=== PATIENT | female | born 1960 | race Caucasian/White ===

== ENCOUNTER 2016-09-09 12:10 | Inpatient (IN) | payer OTHER ==
[2016-09-09] VITALS (7 sets, daily range): BP systolic 142–232; BP diastolic 58–124
[~2016-09-09] VITALS: Ht 157.5 cm; Wt 108.9 kg
[~2016-09-09 12:10] MED LIST: /AMLO25TA PO; /INSUNPH SC; /INSUREG SC; /METO25TAB GT; ACET50TA PO; AGGR1CAP PO; ALBU17IN INH; ALEV220T26 PO; AMLO10TA2 PO; AMMO12CR4 EXT; AMMO12LO TOP; AMMONIUM LACTATE TOP; ARIM1TAB4 PO; ASPI325T5 PO; ASPI81TA60 PO; ASPI81TAEC PO; BACT800T5 PO; BENZ100C5 PO; CARB20TAXR PO; CARV25TA PO; CLOP75TA2 PO; COLA100C5 PO; DULC5TAB PO; EFFI10TA4 PO; EPIP0.3I2 INJ; FLON1SPR; FURO40TA2 PO; FURO80TA2 PO; HUMUINJ SC; HYDR10EL PO; INSUDET SC; INSUNSD SC; INSUPOW XX; INSUR SC; INSURSD SC; INSURSDRX SC; IPRASOL4 INH; KEPP1TAB PO; LISI40TAB FT; LISI40TAB PO; METO12TA PO; MICR10CA PO; MILKSUS PO; MONT10TA2 PO; PERCOCET PO; POTA75TA PO; PROAAER10 IN; QVAR1AER2 INH; RANI150T PO; SENO8.6T5 PO; SENO8.6T9 PO; SIMV20TA2 PO; SPIR25TA2 PO; SYMB80AE IN; TEGR100T3 PO; TIZA4CAP3 PO; TOPR200T PO; TRIA0.1C60 EXT; TYLE325T5 PO; TYLE650T25 PO; VITA100066 PO; ZEST20TA8 PO; ZOCO40TA PO; ZOFR8TAB PO; zocor PO
[2016-09-09] MEDS ORDERED: DEXTROSE 50% 50 ML SYRINGE IV PRN (14:00)
[2016-09-09] MEDS ORDERED: GLUCOSE 4 GM CHEW TABLET PO PRN (14:00)
[2016-09-09] MEDS ORDERED: GLUCAGON FOR INJ 1 MG VIAL (J1610) SC PRN (14:00)
[2016-09-09] MEDS ORDERED: FLOM5CAP PO (15:13)
[2016-09-09] MEDS ORDERED: KEPP1TAB2 PO (15:13)
[2016-09-09] MEDS ORDERED: POTA10CA PO (15:13)
[2016-09-09] MEDS ORDERED: CARB300C7 PO (15:13)
[2016-09-09] MEDS ORDERED: RANI150T PO (15:13)
[2016-09-09] MEDS ORDERED: LISI10TA4 PO (15:13)
[2016-09-09] MEDS ORDERED: HYDR10TAB PO (15:13)
[2016-09-09] MEDS ORDERED: SENN8.6T17 PO (15:13)
[2016-09-09] MEDS ORDERED: ASPI1TAB PO (15:13)
[2016-09-09] MEDS ORDERED: AMLO5TAB2 PO (15:13)
[2016-09-09] MEDS ORDERED: VITA-121 PO (15:13)
[2016-09-09] MEDS ORDERED: ZOCO80TA PO (15:13)
[2016-09-09] MEDS ORDERED: TORS10TA3 PO (15:15)
[2016-09-09] MEDS ORDERED: HEPA50VL SC (15:15)
[2016-09-09] MEDS ORDERED: CARV25TA PO (15:15)
[2016-09-09] MEDS ORDERED: MILKSUS PO (15:24)
[2016-09-09] MEDS ORDERED: BISA10SU4 PR (15:24)
[2016-09-09] MEDS ORDERED: APIDINJ SC (15:24)
[2016-09-09] MEDS ORDERED: ACET1TAB17 PO (15:24)
[2016-09-09] MEDS ORDERED: TOUJ1.2I SC (15:24)
[2016-09-09] MEDS ORDERED: METO10VL IV (15:31)
[2016-09-09] MEDS ORDERED: OXYC-517 PO (15:31)
[2016-09-09] MEDS ORDERED: hydrALAZINE INJ 20 MG/ML VIAL IV ONE (16:00)
[2016-09-09] MEDS ORDERED: amLODIPine 5 MG TAB PO ONE (16:30)
[2016-09-09] MEDS ORDERED: CARVedilol 6.25 MG TAB PO ONE (16:30)
--- NOTE | 2016-09-09 16:53 | PMRNOTEPD ---
PMR Note 56-year-old white female except that for a trial of neuro rehabilitation from [facility] in [place] found to have malignant hypertension upon arrival of 234/95 with a pulse of 80. Patient reporting having been on IV labetalol up until time of discharge itch or not in the records we have received. I have dictated and H&P and the job number is [id number]. ZAIN CROWDER MD Sep 09, 2016 16:53
[2016-09-09] MEDS ORDERED: **hydrALAZINE** 10 MG TAB PO ONE (17:00)
[2016-09-09] MEDS: ASPIRIN 81 MG ENTERIC TAB PO SCH (18:22)
[2016-09-09] MEDS: HumaLOG INSULIN (NovoLOG) PER UNIT SC SCH ×2 (18:23→20:15)
--- NOTE | 2016-09-09 18:57 | IPNPDOC ---
Text Note Date of Service The patient was seen on 09/09/16. NOTE Subjective: I was called by Dr. Balderas to evaluate a patient for hypertension upon arrival from other facility. Patient is a 56 year old female with extensive past medical history. She recently had a neurosurgical procedure performed and was transferred to [facility] for rehabilitation. Upon arrival her blood pressure was noted to be 232/95 with HR of 77. Patient was seen and examined at the bedside. She denied having any shortness of breath, chest pain, visual changes, headache, abdominal pain, nausea, or vomiting. She denied any urinary problems or sensory deficits. Objective: Vitals (See below) General: Lying in bed, no acute distress, comfortable, AAOx3 HEENT: Left scalp dressing in place (s/p recent neurosurgical intervention) CVS: RRR, +S1S2 Lungs: Fair air entry b/l, -w/r/r Abdomen: Soft, ND, NT, +BSx4 Extremities: 1+ pitting edema bilaterally, - Calf tenderness Assessment and plan: 1. Hypertension - - Patient has noted that her blood pressure has been running in the >190s range for the last 2-3 days at other facility - Currently her SBP was >220s - We have given her AM medications at this time at an adjusted dose - s/p Hydralazine 30mg PO, Carvedilol 6.25mg PO and Amlodipine 5mg PO - Her repeat BP check at 6PM was 162/76, with a HR of 76 - Her home medications were as follows: Amlodipine 5mg PO QD, Carvedilol 37.5 mg PO BID, Hydralazine 10 mg PO BID, Lisinopril 10 mg PO QD - Her medications have been adjusted: Amlodipine 10mg PO QD, Carvedilol 50mg PO BID, Hydralazine 20 mg PO TID, Lisinopril 10mg PO QD - Holding parameters have been added Full consultation will be completed by Family Medicine tomorrow AM I will discuss the case with Family [facility] [place] [facility], [facility] [facility], I+[facility] Vital Signs Date Time Temp Pulse Resp B/P (MAP) Pulse Ox O2 Delivery O2 Flow Rate FiO2 09/09/16 18:25 97.9 79 18 162/76 (104) 96 Room Air CIPRIANO DELGADO MD Sep 09, 2016 18:57
[2016-09-09] MEDS: carBAMazepine XR 100 MG TAB PO SCH (20:15)
[2016-09-09] MEDS: levETIRAcetam 250MG TABLET (KEPPRA) PO SCH (20:16)
[2016-09-09] MEDS: SIMVASTATIN 40 MG TAB PO SCH (20:16)
[2016-09-09] MEDS: CARVedilol 12.5 MG TAB PO SCH (20:16)
[2016-09-09] MEDS: FAMOTIDINE 20 MG TAB PO SCH (20:17)
[2016-09-09] MEDS: ACETAMINOPHEN TAB 650MG DOSE (2X325MG) PO PRN (20:17)
[2016-09-09] MEDS: LEVEMIR (INSULIN DETEMIR) 1 UNITS/0.01ML SC SCH (20:17)
[2016-09-09] MEDS: **hydrALAZINE** 10 MG TAB PO SCH (20:17)
[2016-09-09] MEDS ORDERED: CARVedilol 12.5 MG TAB PO SCH (21:00)
[2016-09-09] MEDS ORDERED: **hydrALAZINE** 10 MG TAB PO SCH (21:00)
[2016-09-10] VITALS (9 sets, daily range): BP systolic 162–188; BP diastolic 64–86
[2016-09-10 06:28] LABS: BASO # 0.1 K/mm3 (0.0-0.2); BASO % 0.8 % (0.0-1.0); EOS # 0.5 K/mm3 (0.0-0.50); EOS % 5.4 % (0.0-3.0); LARGE UNSTAINED CELL # 0.1 K/mm3 (0.0-0.4); LARGE UNSTAINED CELL % 1.3 % (0.0-4.0); LYMPH # 2.1 K/mm3 (1.5-4.5); LYMPH % 22.7 % (24.0-44.0); MEAN CORPUSCULAR HEMOGLOBIN 29.7 pg (27.0-33.0); MEAN CORPUSCULAR HGB CONC 33.7 g/dl (32.0-36.5); MEAN CORPUSCULAR VOLUME 88.1 fl (80.0-96.0); MONO # 0.3 K/mm3 (0.0-0.8); MONO % 3.7 % (0.0-5.0); NEUTROPHILS # 5.7 K/mm3 (1.8-7.7); PLATELET COUNT, AUTOMATED 467 k/mm3 (150-450); RED CELL DISTRIBUTION WIDTH 13.6 % (11.5-14.5); WHITE BLOOD COUNT 8.6 K/mm3 (4.0-10.0)
[2016-09-10 06:56] LABS: ALBUMIN 2.5 GM/DL (3.2-5.2); ALBUMIN/GLOBULIN RATIO 0.58 (1.00-1.93); BILIRUBIN,TOTAL 0.2 MG/DL (0.2-1.0); CREATININE FOR GFR 1.02 MG/DL (0.55-1.02); GLOMERULAR FILTRATION RATE 59.5 (>51); POTASSIUM SERUM 3.9 MEQ/L (3.5-5.1); TOTAL PROTEIN 6.8 GM/DL (6.4-8.2)
[2016-09-10] MEDS ORDERED: LISINOPRIL 10 MG TAB PO SCH (09:00)
[2016-09-10] MEDS ORDERED: amLODIPine 5 MG TAB PO SCH (09:00)
[2016-09-10] MEDS: HumaLOG INSULIN (NovoLOG) PER UNIT SC SCH ×4 (09:31→21:00)
[2016-09-10] MEDS: FAMOTIDINE 20 MG TAB PO SCH ×2 (09:32→21:35)
[2016-09-10] MEDS: **hydrALAZINE** 10 MG TAB PO SCH ×3 (09:32→21:34)
[2016-09-10] MEDS: TAMSULOSIN 0.4 MG CAP PO SCH (09:32)
[2016-09-10] MEDS: carBAMazepine XR 100 MG TAB PO SCH ×2 (09:32→21:35)
[2016-09-10] MEDS: POTASSIUM CHLORIDE 10 MEQ SR TABLET PO SCH (09:33)
[2016-09-10] MEDS: TORSEMIDE 10 MG TABLET PO SCH (09:33)
[2016-09-10] MEDS: CARVedilol 12.5 MG TAB PO SCH ×2 (09:34→21:35)
[2016-09-10] MEDS: levETIRAcetam 250MG TABLET (KEPPRA) PO SCH ×2 (09:34→21:34)
[2016-09-10] MEDS: amLODIPine 10 MG TAB PO SCH (09:34)
[2016-09-10] MEDS: LEVEMIR (INSULIN DETEMIR) 1 UNITS/0.01ML SC SCH (09:35)
--- NOTE | 2016-09-10 10:12 | PMRHPE ---
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 The patient was accepted from [facility] for a trial of neurorehabilitation due to reported deficits in mobility, activities of daily living, endurance and some recent dysarthria with transient left hemiparesis. However, on admission the patient in hypertensive crisis with blood pressure of 232/95 and a pulse of 80. She also reports that she had been on IV labetalol until prepared for transport by family vehicle to [facility] acute rehab unit and had change of her antihypertensives. In spite of requests for more records, the most recent records we have were therapy notes from the September 07 and intake and output from the September 08. Patient also notes that part of her stress is that she was told she was independent enough to go straight home by the therapist and then was told she had to come here before she could go home. The patient has had discussions with me about the nature of our rehab unit in that it is a voluntary program and that our discharge goals are based on the skills patient needs to be relatively safe at home. At this time however, our main concerns are hypertension and Dr. Jimenes from the medicine consult service is seeing the patient and adjusting her medications to try and regain control, though we may require transfer to PCU for management of this hypertensive crisis. 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 She is status post CVA times two and had been on the rehab unit previously for treatment of one of those CVAs. SECONDARY DIAGNOSES: Type 2 diabetes mellitus with chronic kidney disease stage 3 and acute kidney disease on top of it going into the surgery. Morbid obesity with obstructive sleep apnea. Atherosclerotic cardiovascular disease with coronary artery disease. Hypertension. Hyperlipidemia. Status post several stents in the heart plus the CVAs noted above and some apparent transient ischemic attacks (TIA) in the past. Asthma. Seizures related to prior cerebrovascular accidents. PAST SURGICAL HISTORY: Carotid stents. Appendectomy. Left breast cancer lumpectomy. FAMILY HISTORY: Includes atherosclerotic cardiovascular disease in the patient' s mother. SOCIAL HISTORY: Patient does not use alcohol, tobacco or illicit drugs and is FULL CODE and lives in wheelchair accessible house in [place], [place] on a barber. MEDICATIONS: The patient was sent on are: - insulin glargine 35 units twice a day - hydralazine 10 mg twice a day - Coreg 37.5 mg twice a day - K-Dur 10 mEq twice a day - Zantac 150 mg daily - simvastatin 80 mg at bedtime - torsemide 10 mg every morning - Tylenol 650 mg every 6 hours as needed - amlodipine 5 mg daily - aspirin 81 delayed release, enteric coated - carbamazepine 300 mg extended release twice a day - Keppra 750 mg twice a day - lisinopril 10 mg daily - Flomax 0.4 mg extended release daily The patient notes having been on IV labetalol until time of discharge and having blood pressures for systolic in the 190s range for the last two days, which are not part of the records with the patient. In fact, reported blood pressure 142/80 with a pulse of 80 and temperature of 37.1 for discharge. ALLERGIES: Includes: AMINOGLYCOSIDE. ATORVASTATIN. BACITRACIN. Bee venom. CEPHALOSPORINS. CIPROFLOXACIN. CONTRAST MEDIA. EZETIMIBE. NEOMYCIN. PENICILLINS. PRAVASTATIN. QUINOLONES. Seafoods. However, patient has been able to tolerate simvastatin. REVIEW OF SYSTEMS: Currently patient just noting frustration at not being able to go home and feeling anxious about that, but not reporting any pain, headaches , HEENT symptoms, cardiac symptoms, pulmonary symptoms, abdominal symptoms, genitourinary () symptoms, mild muscle aches, otherwise negative musculoskeletal, negative neurologic except for off and on mild headaches, which have been going on for a while with occasional severe headaches, but not currently. PHYSICAL EXAMINATION: Patient is a short, 5 feet 2 inches, 103 kg, middle aged white female who is alert and well oriented, a little bit anxious but after talking with her about the unit, less stress and pleasant and cooperative. Memory appears to be intact. VITAL SIGNS: Blood pressure 234/95 with a pulse of 80, blood pressure which has come down to 215/124 when rechecked on the machine as opposed to the initial arm check with manual auscultation. Oxygen saturation is greater than 90 on room air and respirations are approximately 18, but full vitals have not been acquired by nursing and charted yet. HEENT: Patient with craniotomy incision in the left temporal region with dressing that is clean without any drainage. No signs of inflammation, edema or ecchymosis in the area with the head shaved on the left side. No palpable tenderness including the area around the craniotomy site, which was not tested. No lymph nodes were found around the ears. NECK: Supple with no tender point. No carotid bruits and normal size thyroid, which is a little bit firm to touch, but no nodules present. LUNGS: Clear in all perla to auscultation without wheezes, rhonchi or rales and good air movement. CARDIAC: Shows regular rate and rhythm with normal S1 and S2. 3-4/4 radial pulses that are pounding. Good perfusion into the extremities. ABDOMEN: Morbidly obese with no palpable tenderness. Normal bowel sounds are present in all quadrants. EXTREMITIES: With functional range of motion for bilateral upper and lower extremities. NEUROLOGIC: Patient is alert and oriented times four, only error being reporting 09/08 as opposed to 09/09/2016. Memory appears to be intact. Speech is clear, coherent, and appropriate. Affect is a little anxious but pleasant, cooperative. Motor is intact grossly in bilateral upper and lower extremities. Light touch and vibration are intact in bilateral upper and lower extremities. Balance was not tested. Deep tendon reflexes show 1/4 knee jerks/ankle jerks, 2/4 biceps/ brachial radialis bilaterally and 1/4 triceps bilaterally. ASSESSMENT/PLAN: 1. Malignant hypertension: This will be either stabilized or patient will be transferred to the acute medicine service. 2. Plan for rehabilitation of nontraumatic brain injury secondary to Moyamoya disease and revascularization with the vascular graft and craniotomy: I will go ahead and have physical, occupational and speech therapy assess the patient, pending resolution of the malignant hypertension. The patient feels she is independent and able to do these skills and activities to return home, but agrees to evaluation and testing. This is in contrast to the most recent notes which are two days old by physical and occupational therapy at [facility] in [place]. Pending on the patient's results , may discharge if she is modified independent to independent versus proceeding with a trial of neurorehabilitation, will proceed and an estimated length of stay will be figured at that time. 3. Craniotomy care. At this time, will continue with dressing. No other changes. 4. Respiratory. Will go ahead and have the patient use CPAP, her own, and will assess for oxygen needs during therapy as well as night. 5. Atherosclerotic cardiovascular disease with hypertension, hyperlipidemia, coronary artery disease status post stents. We will watch and monitor these, but first the malignant hypertension needs to be treated. Will continue the patient's simvastatin for the lipids and will watch her for any angina. 6. Seizures related to brain injury. Will continue carbamazepine and Keppra and observe for any seizure type activity. POST ADMISSION PHYSICIAN EVALUATION: Patient is not consistent with the status portrayed to our team, especially with regards to hypertension and its management and it appears the patient was discharged with potentially a malignant hypertension to travel here without supervision. Also, the patient versus therapy records reports different levels of function and we will ascertain that by doing our own evaluations here. Depending on those evaluations, the patient may be a candidate for acute intensive rehab. I do think she would tolerate it if needed, however if note needed will go ahead and discharge her to the community. Her prognosis is uncertain as additional evaluation and records will be needed. Estimated length of stay is also uncertain for the reasons described above. Time spent in chart review, history and physical, and documentation is greater than 70 minutes. JANETD
[2016-09-10] MEDS ORDERED: LISINOPRIL 10 MG TAB PO ONE (12:00)
--- NOTE | 2016-09-10 12:03 | HPEPDOC ---
Medical History and Physical Date of Admission Sep 09, 2016 at 14:35 History and Physical REASON FOR CONSULTATION: Medical Management DATE OF VISIT: 09/10/16 ATTENDING: Dr. Jeffrey Siddiqui PCP: Dr Batres HPI: 56year oldF S/P EMS left indirect bypass procedure 08/31/[address] Andrey SUTTON 09/09/16. No acute medical complaints today. Denies any fevers, chills, weakness, fatigue, Headache, Chest Pain, Shortness of breath, cough, palpitations, abdominal pain, N/V/D or changes in bowel or bladder habits. PMHx: IDDM [place] Retinopathy CAD/stent 2001. [place] Hypertension Dyslipidemia Asthma CKD3. Rosi Asthma Chronic venous insufficiency Degenerative disc disease C5-6 Hypertensive heart disease History of CVA Post-CVA seizure Migraine headache. Follows with [facility] CARLOS/CPAP Moyamoya disease PSHX: Tonsillectomy Adenoidectomy Appendectomy Cholecystectomy Left breast biopsy. Ductal hyperplasia Cardiac stents Bilateral tubal ligation Craniotomy for indirect bypass procedure/EMS 01/07 Craniotomy for indirect bypass procedure/EMS08/31/16 SOCHX: Resides in: [facility] Marital Status: Tobacco use: Denies ETOH: Denies Illicit Drugs: Denies FAMHX: Mother: Alive, hypertension, diabetes Father: , lung cancer Siblings: Alive, history of diabetes Unexpected deaths due to medical reasons: None. ROS: As noted in HPI, otherwise 11pt ROS of systems reviewed and unremarkable. Patient is requesting to use her own Toujeo she states Levemir is not effective for her. PE: GEN: 56yoF, appears stated age. Well-nourished, well developed. No acute distress. Alert and oriented x 3. Pleasant, interactive. HEENT: Normocephalic, healing craniotomy incision noted left. Pupils are equal, round, and reactive to light. Extraocular movements are intact. No nystagmus appreciated. Sclera are nonicteric. Conjunctiva without injection. Nose midline. Nasal turbinates without bogginess. EACs both patent BL. TMs both visualized and carpenter with good cone of light, no bulging or erythema. No facial asymmetry. Moist mucous membranes. Dentition fair. Pharynx pink and moist, no cobblestoning. Neck supple, trachea midline. No lymphadenopathy or thyromegaly appreciated. CHEST: Regular rate and rhythm, +S1, +S2 LUNGS: Clear to auscultation bilaterally. No wheezes, rales, or rhonchi. Breathing appears symmetric and easy. Patient is speaking in full sentences. No accessory muscle use. ABD: Round, soft, non-tender, non-distended. +Bowel sounds throughout. No rebound or guarding. No costovertebral angle tenderness. EXT: Pulses 2+ bilaterally dorsalis pedis and radial. Trace lower extremity edema appreciated. SKIN: Bath, dry, warm. Capillary refill <2sec. No rashes. NEURO: Alert and oriented x 3. Cranial nerves III-XII are intact. No focal deficits appreciated. A&P: 56year oldF S/P EMS left indirect bypass procedure 08/31/[address] Balderas ARU 09/09/16 1. Status post EMS/ left indirect bypass procedure 08/31/16. Management as per ARU/Dr Balderas. Follow-up with neurosurgery following discharge. Pain control as per attending. Bowel care as per attending. PT/OT/ST as per attending. DVT prophylaxis. As per attending. 2. IDDM. CC diet. SSI. Pt requests to use Toujeo from home, Cont 40 units BID as per Carole. F/U with Carole as outpt. 3. HTN. Continue Demadex 10 mg daily, potassium supplement 20 mEq daily, Norvasc 10 mg daily, hydralazine 20 mg 3 times a day, Coreg 50 mg twice a day. Blood pressure is noted to be in the 170s to 180s systolic. Will increase lisinopril to 10 mg twice a day. Monitor. 4. HLD. Continue Zocor 80 mg daily. 5. H/O seizure. Continue Tegretol-XR 300 mg by mouth twice a day, Keppra 750mg BID. Outpt F/U with [facility]. 6. CARLOS/CPAP. CPAP from home. 7. GERD. Continue Pepcid 20 mg by mouth twice a day. 8. CAD/stent. Continue Coreg 50 mg by mouth twice a day. Continue statin. Continue aspirin 81 mg daily. 9. CKD3. Follows with Rosi. Monitor. Thank you for your consultation. We will continue to follow along with you. Vital Signs Vital Signs Date Time Temp Pulse Resp B/P (MAP) Pulse Ox O2 Delivery O2 Flow Rate FiO2 09/10/16 10:30 98.1 76 18 178/86 (116) 97 Room Air Laboratory Data Labs 24H Laboratory Tests 2 09/09/16 16:54: Urine Appearance HAZY, Urine Color YELLOW, Urine pH 6.0, Urine Specific Wallace 1.008, Urine Protein 2+H, Urine Glucose (UA) 1+H, Urine Ketones NEGATIVE, Urine Urobilinogen 0.2, Urine Bilirubin NEGATIVE, Urine Leukocyte Esterase 1+H, Urine Blood 1+H, Urine Nitrite NEGATIVE, Urine WBC (Auto) 9H, Urine RBC (Auto) 7H, Urine Hyaline Casts (Auto) 0, Urine Bacteria (Auto) 1+H, Urine Squamous Epithelial Cells 1, Urine Amorphous Sediment SMALLH, Urine Sperm (Auto) 09/09/16 17:07: Bedside Glucose (Misc Panel) 197H 09/09/16 20:02: Bedside Glucose (Misc Panel) 293H 09/10/16 06:06: White Blood Count 8.6, Red Blood Count 3.32L, Hemoglobin 9.9L, Hematocrit 29.2L , Mean Corpuscular Volume 88.1, Mean Corpuscular Hemoglobin 29.7, Mean Corpuscular Hemoglobin Concent 33.7, Red Cell Distribution Width 13.6, Platelet Count 467H, Neutrophils (%) (Auto) 66.0, Lymphocytes (%) (Auto) 22.7L, Monocytes (%) (Auto) 3.7, Eosinophils (%) (Auto) 5.4H, Basophils (%) (Auto) 0.8 , Neutrophils # (Auto) 5.7, Lymphocytes # (Auto) 2.1, Monocytes # (Auto) 0.3, Eosinophils # (Auto) 0.5, Basophils # (Auto) 0.1, Large Unclassified Cells % 1.3 , Large Unclassified Cells # 0.1, Anion Gap 5L, Glomerular Filtration Rate 59.5 , Blood Urea Nitrogen 11, Creatinine 1.02, Sodium Level 141, Potassium Level 3.9 , Chloride Level 107, Carbon Dioxide Level 29, Calcium Level 9.0, Aspartate Amino Transf (AST/SGOT) 24, Alanine Aminotransferase (ALT/SGPT) 46, Alkaline Phosphatase 155H, Total Bilirubin 0.2, Total Protein 6.8, Albumin 2.5L, Albumin/ Globulin Ratio 0.58L 09/10/16 11:26: Bedside Glucose (Misc Panel) 206H CBC/BMP Laboratory Tests 09/10/16 06:06 Red Blood Count 3.32 L, Mean Corpuscular Volume 88.1, Mean Corpuscular Hemoglobin 29.7, Mean Corpuscular Hemoglobin Concent 33.7, Red Cell Distribution Width 13.6, Neutrophils (%) (Auto) 66.0, Lymphocytes (%) (Auto) 22.7 L, Monocytes (%) (Auto) 3.7, Eosinophils (%) (Auto) 5.4 H, Basophils (%) ( Auto) 0.8, Neutrophils # (Auto) 5.7, Lymphocytes # (Auto) 2.1, Monocytes # (Auto ) 0.3, Eosinophils # (Auto) 0.5, Basophils # (Auto) 0.1, Calcium Level 9.0, Aspartate Amino Transf (AST/SGOT) 24, Alanine Aminotransferase (ALT/SGPT) 46, Alkaline Phosphatase 155 H, Total Bilirubin 0.2, Total Protein 6.8, Albumin 2.5 L Home Medications Scheduled (Edi Whelan) 300 Unit/Ml Inj, 35 UNIT SC BID HOME MED (Apidra) 100 Unit/Ml Inj, 1 DOSE SC ACHS PER SLIDING SCALE, GIVEN AT [facility], NOT HOME MED Amlodipine Besylate (Amlodipine Besylate) 5 Mg Tab, 5 MG PO DAILY Aspirin (Aspirin 81) 81 Mg Tab, 81 MG PO QPM Carbamazepine (Carbamazepine ER) 300 Mg Cap, 300 MG PO BID Carvedilol (Carvedilol) 25 Mg Tab, 37.5 MG PO BID Cholecalciferol (Vitamin D-3) 1,000 Unit Tab, 3,000 UNIT PO DAILY Heparin Sod (Porcine) (Heparin Sodium) 5,000 Unit/Ml Inj, 5,000 UNIT SC TID [facility] Hydralazine HCl (Hydralazine HCl) 10 Mg Tab, 10 MG PO BID Levetiracetam (Keppra) 750 Mg Tab, 750 MG PO BID Lisinopril (Lisinopril) 10 Mg Tab, 10 MG PO DAILY Potassium Chloride (Klor-Con M10) 10 Meq Tabcr, 10 MEQ PO BID Ranitidine HCl (Ranitidine HCl) 150 Mg Tab, 1 TAB PO QPM Senna (Senna Laxative) 8.6 Mg Tab, 2 TAB PO QHS Simvastatin - High Dose (Zocor) 80 Mg Tab, 80 MG PO QHS Tamsulosin Hydrochloride (Flomax) 0.4 Mg Cap, 0.4 MG PO DAILY Torsemide (Torsemide) 10 Mg Tab, 10 MG PO DAILY Scheduled PRN Acetaminophen (Acetaminophen) 325 Mg Tab, 650 MG PO Q4H PRN for PAIN Bisacodyl (Bisacodyl) 10 Mg Sup, 10 MG TX for CONSTIPATION Metoclopramide HCl (Metoclopramide HCl) 5 Mg/Ml Inj, 10 MG IV Q6H PRN for NAUSEA OR VOMITING Milk Of Magnesia (Milk of Magnesia) 1,200 Mg/15 Ml Erendira, 30 ML PO for CONSTIPATION Oxycodone HCl (Oxycodone HCl) 5 Mg Tab, 5 MG PO Q4H PRN for PAIN Allergies Coded Allergies: Cephalexin (Unverified Allergy, Intermediate, HIVES, 12/27/13) Ciprofloxacin (Unverified Allergy, Intermediate, HIVES, 12/27/13) Aminoglycosides (Verified Allergy, Mild, HIVES, 05/30/12) Bacitracin (Verified Allergy, Mild, HIVES, 05/30/12) Cephalosporins (Verified Allergy, Mild, HIVES, DYSPENA, 05/30/12) Neomycin (Verified Allergy, Mild, HIVES, 05/30/12) Polymyxin B (Verified Allergy, Mild, HIVES, 05/30/12) Atorvastatin (Verified Allergy, Unknown, 09/09/16) Bee Venom (Verified Allergy, Unknown, 09/09/16) Contrast Media (Verified Allergy, Unknown, 02/12/03) Penicillins (Verified Allergy, Unknown, 05/30/12) Penicillins Cross Reactors (Verified Allergy, Unknown, 05/30/12) Pravastatin (Verified Allergy, Unknown, 09/09/16) Quinolones (Verified Allergy, Unknown, 05/30/12) SEAFOOD (Unverified Allergy, Unknown, N/V AND RASH, DIFF. BREATHING, 02/06) Ezetimibe (Verified Adverse Reaction, Severe, MUSCLE WEAKNESS, 05/30/12) Statins (Verified Adverse Reaction, Severe, MUSCLE ACHES, 05/30/12) CRESTOR, LIPITOR, PRAVACHOL Summer Franco PA Sep 10, 2016 12:03
--- NOTE | 2016-09-10 14:46 | IPNPDOC ---
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 Patient with some balance, sensorium, mild weakness and limitations in ADLs is admitted for a program of physical and occupational therapy with assessment by speech-language pathology. Patient who had perceived yourself as modified independent to independent is showing number areas where she is min assist to contact-guard assist or needing supervision and set up in terms of ADLs and mobility. He should be amenable to therapy. He issue remains hypertension which is improved but still significantly above target. Patient without a pain complaints notes feeling less stress today and expresses trust in members of her care team. ALLERGIES: See Below MEDICATIONS: Reviewed, see below. OBJECTIVE: VITAL SIGNS: Please see below. PHYSICAL EXAMINATION: GENERAL: Morbidly obese 56-year-old white female who is alert and oriented 4. Speech is clear coherent appropriate but slightly concrete. Affect is less anxious, but is overall pleasant and cooperative. HEENT: Left craniotomy site without signs of inflammation or drainage. No facial droop or dysarthria noted. CARDIOVASCULAR: Regular rate and rhythm with normal S1 and S2 without S3-S4 murmurs or rubs. 3 out 4 radial pulses. LUNGS: All perla clear to auscultation . ABDOMEN: Obese, nontender with normal bowel sounds in all quadrants. NEUROLOGICAL: Good to full strength in bilateral upper and lower extremities with a little decrease in balance. SKIN: Left scalp incision healing well. LABORATORY DATA: Reviewed. Please see below. MICROBIOLOGY: Please see below. IMAGING: No new imaging. DVT prophylaxis ordered?: MIKE hose and aspirin. ASSESSMENT AND PLAN: 1. 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 Patient was reviewed by team and rehabilitation rounds and there does appear to be about 5-6 days of therapy needed to reach goals for discharge to home. 2. Malignant hypertension: Systolic blood pressure still 178 this morning but then slid up to 182 and then back down to 178 for late morning and early afternoon. As is remained this I will continue every 4 hours checks. Medicine consult to continue to work on adjusting medications to try and reach bear systolic blood pressure control. 3. Anemia: H&H is 9.9 and 29.2 with some elevation of platelets of 467,000 which is probably stress related. We will continue to monitor this. 4. Liver function tests: AST and ALT are normal but alkaline phosphatase is mildly elevated at 155. We will continue to monitor this. 5. Hypoalbuminemia: Surgery has stressed the patient and current albumin level is 2.5 which will need watching. 6. Bladder: Mildly abnormal urinalysis with 2+ protein 9 white blood cells 1+ ( glucose, blood, leukoesterase and bacteria) is suggestive of possible UTI. I will get catheterized specimen to avoid Contamination for urine culture and sensitivity. At this time I will not start empiric antibiotics. TIME SPENT: Chart Review, examination and documentation required greater than 35 minutes. Allergies Coded Allergies: Cephalexin (Unverified Allergy, Intermediate, HIVES, 12/27/13) Ciprofloxacin (Unverified Allergy, Intermediate, HIVES, 12/27/13) Aminoglycosides (Verified Allergy, Mild, HIVES, 05/30/12) Bacitracin (Verified Allergy, Mild, HIVES, 05/30/12) Cephalosporins (Verified Allergy, Mild, HIVES, DYSPENA, 05/30/12) Neomycin (Verified Allergy, Mild, HIVES, 05/30/12) Polymyxin B (Verified Allergy, Mild, HIVES, 05/30/12) Atorvastatin (Verified Allergy, Unknown, 09/09/16) Bee Venom (Verified Allergy, Unknown, 09/09/16) Contrast Media (Verified Allergy, Unknown, 02/12/03) Penicillins (Verified Allergy, Unknown, 05/30/12) Penicillins Cross Reactors (Verified Allergy, Unknown, 05/30/12) Pravastatin (Verified Allergy, Unknown, 09/09/16) Quinolones (Verified Allergy, Unknown, 05/30/12) SEAFOOD (Unverified Allergy, Unknown, N/V AND RASH, DIFF. BREATHING, 02/06) Ezetimibe (Verified Adverse Reaction, Severe, MUSCLE WEAKNESS, 05/30/12) Statins (Verified Adverse Reaction, Severe, MUSCLE ACHES, 05/30/12) CRESTOR, LIPITOR, PRAVACHOL Vital Signs Vital Signs Date Time Temp Pulse Resp B/P (MAP) Pulse Ox O2 Delivery O2 Flow Rate FiO2 09/10/16 12:48 178/86 09/10/16 10:30 98.1 76 18 97 Room Air Laboratory Data CBC/BMP Laboratory Tests 09/10/16 06:06 Red Blood Count 3.32 L, Mean Corpuscular Volume 88.1, Mean Corpuscular Hemoglobin 29.7, Mean Corpuscular Hemoglobin Concent 33.7, Red Cell Distribution Width 13.6, Neutrophils (%) (Auto) 66.0, Lymphocytes (%) (Auto) 22.7 L, Monocytes (%) (Auto) 3.7, Eosinophils (%) (Auto) 5.4 H, Basophils (%) ( Auto) 0.8, Neutrophils # (Auto) 5.7, Lymphocytes # (Auto) 2.1, Monocytes # (Auto ) 0.3, Eosinophils # (Auto) 0.5, Basophils # (Auto) 0.1, Calcium Level 9.0, Aspartate Amino Transf (AST/SGOT) 24, Alanine Aminotransferase (ALT/SGPT) 46, Alkaline Phosphatase 155 H, Total Bilirubin 0.2, Total Protein 6.8, Albumin 2.5 L Labs 24H Laboratory Tests 2 09/09/16 16:54: Urine Appearance HAZY, Urine Color YELLOW, Urine pH 6.0, Urine Specific [place] 1.008, Urine Protein 2+H, Urine Glucose (UA) 1+H, Urine Ketones NEGATIVE, Urine Urobilinogen 0.2, Urine Bilirubin NEGATIVE, Urine Leukocyte Esterase 1+H, Urine Blood 1+H, Urine Nitrite NEGATIVE, Urine WBC (Auto) 9H, Urine RBC (Auto) 7H, Urine Hyaline Casts (Auto) 0, Urine Bacteria (Auto) 1+H, Urine Squamous Epithelial Cells 1, Urine Amorphous Sediment SMALLH, Urine Sperm (Auto) 09/09/16 17:07: Bedside Glucose (Misc Panel) 197H 09/09/16 20:02: Bedside Glucose (Misc Panel) 293H 09/10/16 06:04: Carbamazepine (Tegretol) Level 8.4 09/10/16 06:06: White Blood Count 8.6, Red Blood Count 3.32L, Hemoglobin 9.9L, Hematocrit 29.2L , Mean Corpuscular Volume 88.1, Mean Corpuscular Hemoglobin 29.7, Mean Corpuscular Hemoglobin Concent 33.7, Red Cell Distribution Width 13.6, Platelet Count 467H, Neutrophils (%) (Auto) 66.0, Lymphocytes (%) (Auto) 22.7L, Monocytes (%) (Auto) 3.7, Eosinophils (%) (Auto) 5.4H, Basophils (%) (Auto) 0.8 , Neutrophils # (Auto) 5.7, Lymphocytes # (Auto) 2.1, Monocytes # (Auto) 0.3, Eosinophils # (Auto) 0.5, Basophils # (Auto) 0.1, Large Unclassified Cells % 1.3 , Large Unclassified Cells # 0.1, Anion Gap 5L, Glomerular Filtration Rate 59.5 , Blood Urea Nitrogen 11, Creatinine 1.02, Sodium Level 141, Potassium Level 3.9 , Chloride Level 107, Carbon Dioxide Level 29, Calcium Level 9.0, Aspartate Amino Transf (AST/SGOT) 24, Alanine Aminotransferase (ALT/SGPT) 46, Alkaline Phosphatase 155H, Total Bilirubin 0.2, Total Protein 6.8, Albumin 2.5L, Albumin/ Globulin Ratio 0.58L 09/10/16 11:26: Bedside Glucose (Misc Panel) 206H Current Medications Current Medications Current Medications Acetaminophen (Tylenol Tab) 650 mg Q6HP PRN PO PAIN Last administered on 20:17; Start 09/09/16 at 14:00; Stop 10/09/16 at 13:59 Amlodipine Besylate (Norvasc) 5 mg DAILY PO ; Start 09/10/16 at 09:00; Stop at 09:00; Status DC Amlodipine Besylate (Norvasc) 10 mg DAILY PO Last administered on 09/10/16 09: 34; Start 09/10/16 at 09:00; Stop 10/10/16 at 08:59 Aspirin (Ecotrin) 81 mg QPM@1800 PO Last administered on 09/09/16 18:22; Start 09/09/16 at 18:00; Stop 10/09/16 at 17:59 Carbamazepine (TEGretol XR) 300 mg BID PO Last administered on 09/10/16 09:32 ; Start 09/09/16 at 21:00; Stop 10/09/16 at 20:59 Carvedilol (COReg) 37.5 mg BID PO ; Start 09/09/16 at 21:00; Stop 09/09/16 at 21 :00; Status DC Carvedilol (COReg) 50 mg BID PO Last administered on 09/10/16 09:34; Start at 21:00; Stop 10/09/16 at 20:59 Dextrose (Dextrose 50%) 25 ml ASDIRECTED PRN IV SEE LABEL COMMENTS; Start 09/09 at 14:00; Stop 10/09/16 at 13:59 Famotidine (Pepcid) 20 mg BID PO Last administered on 09/10/16 09:32; Start at 21:00; Stop 10/09/16 at 20:59 Glucagon (Glucagon) 1 mg ASDIRECTED PRN SC SEE LABEL COMMENTS; Start 09/09/16 at 14:00; Stop 10/09/16 at 13:59 Glucose (Glucose) 16 GM ASDIRECTED PRN PO SEE LABEL COMMENTS; Start 09/09/16 at 14:00; Stop 10/09/16 at 13:59 Home Med (Med Rec Complete!) ASDIRECTED XX ; Start 09/09/16 at 15:45; Stop at 15:49; Status DC Hydralazine HCl (Apresoline) 10 mg BID PO ; Start 09/09/16 at 21:00; Stop at 21:00; Status DC Hydralazine HCl (Apresoline) 20 mg TID PO Last administered on 09/10/16 09:32 ; Start 09/09/16 at 21:00; Stop 10/09/16 at 20:59 Insulin Detemir (Levemir Insulin) 35 units BID SC Last administered on 09:35; Start 09/09/16 at 21:00; Stop 09/10/16 at 11:50; Status DC Insulin Human Lispro (HumaLOG INSULIN) See Protocol Table AC SC Last administered on 09/10/16 12:49; Start 09/09/16 at 17:30; Stop 10/09/16 at 17:29 Insulin Human Lispro (HumaLOG INSULIN) See Protocol Table QHS SC Last administered on 09/09/16 20:15; Start 09/09/16 at 21:00; Stop 10/09/16 at 20:59 Levetiracetam (Keppra) 750 mg BID PO Last administered on 09/10/16 09:34; Start 09/09/16 at 21:00; Stop 10/09/16 at 20:59 Lisinopril (Prinivil) 10 mg BID PO ; Start 09/10/16 at 21:00; Stop 10/10/16 at 20:59 Lisinopril (Prinivil) 10 mg DAILY PO Last administered on 09/10/16 09:33; Start 09/10/16 at 09:00; Stop 09/10/16 at 11:50; Status DC Miscellaneous (Unresolved Patient Own Med Order) SEE LABEL COMMENTS UNRESOLVED XX ; Start 09/10/16 at 00:01; Stop 10/10/16 at 00:00 Patient Own Medication (Patient'S Own Med) 1 ea BID SQ ; Start 09/10/16 at 21:00 ; Stop 10/10/16 at 20:59; Status UNV Potassium Chloride (Micro-K Extencaps) 20 meq DAILY PO Last administered on 09:33; Start 09/10/16 at 09:00; Stop 10/10/16 at 08:59 Simvastatin (Zocor) 80 mg QHS PO Last administered on 09/09/16 20:16; Start at 21:00; Stop 10/09/16 at 20:59 Tamsulosin HCl (Flomax) 0.4 mg DAILY PO Last administered on 09/10/16 09:32; Start 09/10/16 at 09:00; Stop 10/10/16 at 08:59 Torsemide (Demadex) 10 mg DAILY PO Last administered on 09/10/16 09:33; Start 09/10/16 at 09:00; Stop 10/10/16 at 08:59 ZAIN CROWDER MD Sep 10, 2016 14:46
[2016-09-10] MEDS: ASPIRIN 81 MG ENTERIC TAB PO SCH (18:10)
[2016-09-10] MEDS: SIMVASTATIN 40 MG TAB PO SCH (21:34)
[2016-09-10] MEDS: LISINOPRIL 10 MG TAB PO SCH (21:35)
[2016-09-11] VITALS (8 sets, daily range): BP systolic 158–190; BP diastolic 64–90
[2016-09-11] MEDS ORDERED: NITROGLYCERIN 0.4 MG SUBL TABLET SL PRN (03:45)
[2016-09-11 06:58] LABS: MEAN CORPUSCULAR HEMOGLOBIN 30.4 pg (27.0-33.0); MEAN CORPUSCULAR HGB CONC 34.8 g/dl (32.0-36.5); MEAN CORPUSCULAR VOLUME 87.3 fl (80.0-96.0); RED CELL DISTRIBUTION WIDTH 13.6 % (11.5-14.5); WHITE BLOOD COUNT 7.6 K/mm3 (4.0-10.0)
[2016-09-11 07:09] LABS: ALBUMIN 2.3 GM/DL (3.2-5.2); ALBUMIN/GLOBULIN RATIO 0.59 (1.00-1.93); ALKALINE PHOSPHATASE 129 U/L (45-117); ALT/SGPT 36 U/L (12-78); ANION GAP 6 MEQ/L (8-16); AST/SGOT 20 U/L (15-37); BILIRUBIN,TOTAL 0.2 MG/DL (0.2-1.0); BLOOD UREA NITROGEN 11 MG/DL (7-18); CALCIUM LEVEL 8.5 MG/DL (8.5-10.1); CARBON DIOXIDE LEVEL 28 MEQ/L (21-32); CHLORIDE LEVEL 104 MEQ/L (98-107); CREATININE FOR GFR 0.95 MG/DL (0.55-1.02); GLOMERULAR FILTRATION RATE > 60.0 (>51); GLUCOSE, FASTING 128 MG/DL (70-105); POTASSIUM SERUM 3.6 MEQ/L (3.5-5.1); SODIUM LEVEL 138 MEQ/L (136-145); TOTAL PROTEIN 6.2 GM/DL (6.4-8.2)
[2016-09-11] MEDS: HumaLOG INSULIN (NovoLOG) PER UNIT SC SCH ×4 (08:15→20:54)
[2016-09-11] MEDS: LISINOPRIL 10 MG TAB PO SCH ×2 (08:16→20:53)
[2016-09-11] MEDS: TAMSULOSIN 0.4 MG CAP PO SCH (08:17)
[2016-09-11] MEDS: FAMOTIDINE 20 MG TAB PO SCH ×2 (08:17→20:52)
[2016-09-11] MEDS: levETIRAcetam 250MG TABLET (KEPPRA) PO SCH ×2 (08:17→20:53)
[2016-09-11] MEDS: TORSEMIDE 10 MG TABLET PO SCH (08:17)
[2016-09-11] MEDS: amLODIPine 10 MG TAB PO SCH (08:17)
[2016-09-11] MEDS: carBAMazepine XR 100 MG TAB PO SCH ×2 (08:18→20:53)
[2016-09-11] MEDS: CARVedilol 12.5 MG TAB PO SCH ×2 (08:18→20:52)
[2016-09-11] MEDS: **hydrALAZINE** 10 MG TAB PO SCH (08:18)
[2016-09-11] MEDS: POTASSIUM CHLORIDE 10 MEQ SR TABLET PO SCH (08:18)
[2016-09-11] MEDS ORDERED: NON-FORMULARY 1 EA EA SQ SCH (09:00)
[2016-09-11 10:15] LABS: PERCENT SATURATION 21.1 % (13.2-37.4)
--- NOTE | 2016-09-11 12:04 | IPNPDOC ---
Date Seen The patient was seen on 09/11/16. Progress Note HPI: 56year oldF S/P EMS left indirect bypass procedure 08/31/[address] Andrey SUTTON 09/09/16. Pt had episode of CP last PM. Pt states it was heavy sensation over chest. States she has had some anxiety regarding controlling her BP. Pt was given SL NTG x 1 with relief. Pt states she has not had any further CP symptoms. Has been OOB with therapy this AM. Denies any fevers, chills, weakness, fatigue, Headache, Chest Pain, Shortness of breath, cough, palpitations, abdominal pain, N/V/D or changes in bowel or bladder habits. PMHx: IDDM [facility] Syr Retinopathy CAD/stent 2001. [place] Hypertension Dyslipidemia Asthma CKD3. Rosi Asthma Chronic venous insufficiency Degenerative disc disease C5-6 Hypertensive heart disease History of CVA Post-CVA seizure Migraine headache. Follows with [facility] CARLOS/CPAP Moyamoya disease PSHX: Tonsillectomy Adenoidectomy Appendectomy Cholecystectomy Left breast biopsy. Ductal hyperplasia Cardiac stents Bilateral tubal ligation Craniotomy for indirect bypass procedure/EMS 01/07 Craniotomy for indirect bypass procedure/EMS08/31/16 PE: GEN: 56yoF, appears stated age. Well-nourished, well developed. No acute distress. Alert and oriented x 3. Pleasant, interactive. HEENT: Normocephalic, healing craniotomy incision noted left. Pupils are equal, round, and reactive to light. Extraocular movements are intact. No nystagmus appreciated. Sclera are nonicteric. Conjunctiva without injection. Nose midline. Nasal turbinates without bogginess. EACs both patent BL. TMs both visualized and carpenter with good cone of light, no bulging or erythema. No facial asymmetry. Moist mucous membranes. Dentition fair. Pharynx pink and moist, no cobblestoning. Neck supple, trachea midline. No lymphadenopathy or thyromegaly appreciated. CHEST: Regular rate and rhythm, +S1, +S2. JVD not visible sitting. LUNGS: Clear to auscultation bilaterally. No wheezes, rales, or rhonchi. Breathing appears symmetric and easy. Patient is speaking in full sentences. No accessory muscle use. ABD: Round, soft, non-tender, non-distended. +Bowel sounds throughout. No rebound or guarding. No costovertebral angle tenderness. EXT: Pulses 2+ bilaterally dorsalis pedis and radial. Trace lower extremity edema appreciated. SKIN: [place], dry, warm. Capillary refill <2sec. No rashes. NEURO: Alert and oriented x 3. Cranial nerves III-XII are intact. No focal deficits appreciated. A&P: 56year oldF S/P EMS left indirect bypass procedure 08/31/[address] Balderas ARU 09/09/16 1. Status post EMS/ left indirect bypass procedure 08/31/16. Management as per ARU/Dr Balderas. Follow-up with neurosurgery following discharge. Pain control as per attending. Bowel care as per attending. PT/OT/ST as per attending. DVT prophylaxis. As per attending. 2. IDDM. CC diet. SSI. Pt continues with Toujeo 40 units BID as per Carole. F/U with [facility] as outpt. 3. HTN. BP remains suboptimally controlled 150-190 systolic. Continue Demadex 10 mg daily/potassium supplement 20 mEq daily, Norvasc 10 mg daily. Coreg 50 mg twice a day. Lisinopril 10 mg twice a day. Increase Hydralazine to 30mg TID with hold parameters. Continue to monitor BP trend. 4. HLD. Continue Zocor 80 mg daily. 5. H/O seizure. Continue Tegretol-XR 300 mg by mouth twice a day, Keppra 750mg BID. Outpt F/U with [facility]. 6. CARLOS/CPAP. CPAP from home. 7. GERD. Continue Pepcid 20 mg by mouth twice a day. 8. CAD/stent. Continue Coreg 50 mg by mouth twice a day. Continue statin. Continue aspirin 81 mg daily. 9. CKD3. Follows with [facility]. Monitor. 10 Chest pain. Pt with episode of CP last PM. CIP/Trop/EKG completed at approx 4 AM. Pt states she has not had any further CP symptoms. Will recheck CIP/Trop at noon today. 11. Anemia. Baseline Hgb appears to be 10-11 possibly related to CKD. Will add Fe studies, B12/folate to labs. Check Stool OB. Thank you for your consultation. We will continue to follow along with you. VS, I&O, 24H, Fishbone Vital Signs/I&O Vital Signs Date Time Temp Pulse Resp B/P (MAP) Pulse Ox O2 Delivery O2 Flow Rate FiO2 09/11/16 10:00 98.3 71 16 172/78 (109) 95 Room Air I&O- Last 24 Hours up to 6 AM 09/11/16 06:00 Intake Total 960 ml Balance 960 ml Laboratory Data 24H LABS Laboratory Tests 2 09/10/16 16:34: Bedside Glucose (Misc Panel) 130H 09/10/16 19:53: Bedside Glucose (Misc Panel) 170H 09/11/16 04:00: Iron Level 39L, Total Iron Binding Capacity 185L, Transferrin % Saturation 21.1 , Ferritin 115, Total Creatine Kinase 141, Creatine Kinase MB 1.3, Creatine Kinase MB Relative Index 0.92, Troponin I 0.02 09/11/16 06:22: Anion Gap 6L, Glomerular Filtration Rate > 60.0, Blood Urea Nitrogen 11, Creatinine 0.95, Sodium Level 138, Potassium Level 3.6, Chloride Level 104, Carbon Dioxide Level 28, Calcium Level 8.5, Aspartate Amino Transf (AST/SGOT) 20 , Alanine Aminotransferase (ALT/SGPT) 36, Alkaline Phosphatase 129H, Total Bilirubin 0.2, Total Protein 6.2L, Albumin 2.3L, Albumin/Globulin Ratio 0.59L 09/11/16 10:14: CBC/BMP Laboratory Tests 09/11/16 06:22 Red Blood Count 2.78 L, Mean Corpuscular Volume 87.3, Mean Corpuscular Hemoglobin 30.4, Mean Corpuscular Hemoglobin Concent 34.8, Red Cell Distribution Width 13.6, Calcium Level 8.5, Aspartate Amino Transf (AST/SGOT) 20 , Alanine Aminotransferase (ALT/SGPT) 36, Alkaline Phosphatase 129 H, Total Bilirubin 0.2, Total Protein 6.2 L, Albumin 2.3 L Summer Franco Sep 11, 2016 12:04
--- NOTE | 2016-09-11 12:19 | IPNPDOC ---
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 Patient with some balance, sensorium, mild weakness and limitations in ADLs is admitted for a program of physical and occupational therapy with assessment by speech-language pathology. Patient who had perceived yourself as modified independent to independent is showing number areas where she is min assist to contact-guard assist or needing supervision and set up in terms of ADLs and mobility. He should be amenable to therapy. He issue remains hypertension which is improved but still significantly above target. Patient without a pain complaints notes feeling less stress today and expresses trust in members of her care team. Earlier patient with c/o chest pain. ALLERGIES: See Below MEDICATIONS: Reviewed, see below. OBJECTIVE: VITAL SIGNS: Please see below. PHYSICAL EXAMINATION: GENERAL: Morbidly obese 56-year-old white female who is alert and oriented 4. Speech is clear coherent appropriate but slightly concrete. Affect is less anxious, but is overall pleasant and cooperative. HEENT: Left craniotomy site without signs of inflammation or drainage. No facial droop or dysarthria noted. CARDIOVASCULAR: Regular rate and rhythm with normal S1 and S2 without S3-S4 murmurs or rubs. 3 out 4 radial pulses. LUNGS: All perla clear to auscultation . ABDOMEN: Obese, nontender with normal bowel sounds in all quadrants. NEUROLOGICAL: Good to full strength in bilateral upper and lower extremities with a little decrease in balance. SKIN: Left scalp incision healing well. LABORATORY DATA: Reviewed. Please see below. MICROBIOLOGY: Please see below. IMAGING: No new imaging. DVT prophylaxis ordered?: MIKE hose and aspirin. ASSESSMENT AND PLAN: 1. 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 Patient was reviewed by team and rehabilitation rounds and there does appear to be about 5-6 days of therapy needed to reach goals for discharge to home. endurance is somewhat limited but patient is working hard in therapy. 2. Malignant hypertension: Systolic blood pressure still 158 this morning but then slid up to 190 early this morning and then back up to 172 for late morning. As this remained high, I will continue every 4 hours checks. Medicine consult to continue to work on adjusting medications to try and reach better systolic blood pressure control. 3. Anemia: H&H is 8.4 and 24.3%, which may be some fluid dilution, or slow lost. We will continue to monitor this. 4. Liver function tests: AST and ALT are normal but alkaline phosphatase is mildly elevated at 129 down from 155. We will continue to monitor this. 5. Hypoalbuminemia: Surgery has stressed the patient and current albumin level is 2.5 which will need watching. 6. Bladder: Mildly abnormal urinalysis with 2+ protein 9 white blood cells 1+ ( glucose, blood, leukoesterase and bacteria) is suggestive of possible UTI. I will get catheterized specimen to avoid Contamination for urine culture and sensitivity. At this time I will not start empiric antibiotics as patient without fever or is not symptomatic. 7. Chest pain: Initial Troponin and CPK were negative and all pain disappeared with 1 SL NTG tab. We will need to keep watch on this as patient at risk for cardiac events with weight and HTN. She is stressed by son's birthday tomorrow and not being able to go home for the birthday. TIME SPENT: Chart Review, examination and documentation required greater than 25 minutes. Allergies Coded Allergies: Cephalexin (Unverified Allergy, Intermediate, HIVES, 12/27/13) Ciprofloxacin (Unverified Allergy, Intermediate, HIVES, 12/27/13) Aminoglycosides (Verified Allergy, Mild, HIVES, 05/30/12) Bacitracin (Verified Allergy, Mild, HIVES, 05/30/12) Cephalosporins (Verified Allergy, Mild, HIVES, DYSPENA, 05/30/12) Neomycin (Verified Allergy, Mild, HIVES, 05/30/12) Polymyxin B (Verified Allergy, Mild, HIVES, 05/30/12) Atorvastatin (Verified Allergy, Unknown, 09/09/16) Bee Venom (Verified Allergy, Unknown, 09/09/16) Contrast Media (Verified Allergy, Unknown, 02/12/03) Penicillins (Verified Allergy, Unknown, 05/30/12) Penicillins Cross Reactors (Verified Allergy, Unknown, 05/30/12) Pravastatin (Verified Allergy, Unknown, 09/09/16) Quinolones (Verified Allergy, Unknown, 05/30/12) SEAFOOD (Unverified Allergy, Unknown, N/V AND RASH, DIFF. BREATHING, 02/06) Ezetimibe (Verified Adverse Reaction, Severe, MUSCLE WEAKNESS, 05/30/12) Statins (Verified Adverse Reaction, Severe, MUSCLE ACHES, 05/30/12) CRESTOR, LIPITOR, PRAVACHOL Vital Signs Vital Signs Date Time Temp Pulse Resp B/P (MAP) Pulse Ox O2 Delivery O2 Flow Rate FiO2 09/11/16 10:00 98.3 71 16 172/78 (109) 95 Room Air Laboratory Data CBC/BMP Laboratory Tests 09/11/16 06:22 Red Blood Count 2.78 L, Mean Corpuscular Volume 87.3, Mean Corpuscular Hemoglobin 30.4, Mean Corpuscular Hemoglobin Concent 34.8, Red Cell Distribution Width 13.6, Calcium Level 8.5, Aspartate Amino Transf (AST/SGOT) 20 , Alanine Aminotransferase (ALT/SGPT) 36, Alkaline Phosphatase 129 H, Total Bilirubin 0.2, Total Protein 6.2 L, Albumin 2.3 L Labs 24H Laboratory Tests 2 09/10/16 16:34: Bedside Glucose (Misc Panel) 130H 09/10/16 19:53: Bedside Glucose (Misc Panel) 170H 09/11/16 04:00: Iron Level 39L, Total Iron Binding Capacity 185L, Transferrin % Saturation 21.1 , Ferritin 115, Total Creatine Kinase 141, Creatine Kinase MB 1.3, Creatine Kinase MB Relative Index 0.92, Troponin I 0.02 09/11/16 06:22: Anion Gap 6L, Glomerular Filtration Rate > 60.0, Blood Urea Nitrogen 11, Creatinine 0.95, Sodium Level 138, Potassium Level 3.6, Chloride Level 104, Carbon Dioxide Level 28, Calcium Level 8.5, Aspartate Amino Transf (AST/SGOT) 20 , Alanine Aminotransferase (ALT/SGPT) 36, Alkaline Phosphatase 129H, Total Bilirubin 0.2, Total Protein 6.2L, Albumin 2.3L, Albumin/Globulin Ratio 0.59L 09/11/16 10:14: Current Medications Current Medications Current Medications Acetaminophen (Tylenol Tab) 650 mg Q6HP PRN PO PAIN Last administered on t 20:17; Start 09/09/16 at 14:00; Stop 10/09/16 at 13:59 Amlodipine Besylate (Norvasc) 5 mg DAILY PO ; Start 09/10/16 at 09:00; Stop at 09:00; Status DC Amlodipine Besylate (Norvasc) 10 mg DAILY PO Last administered on 09/11/16 08: 17; Start 09/10/16 at 09:00; Stop 10/10/16 at 08:59 Aspirin (Ecotrin) 81 mg QPM@1800 PO Last administered on 09/10/16 18:10; Start 09/09/16 at 18:00; Stop 10/09/16 at 17:59 Carbamazepine (TEGretol XR) 300 mg BID PO Last administered on 09/11/16 08:18 ; Start 09/09/16 at 21:00; Stop 10/09/16 at 20:59 Carvedilol (COReg) 37.5 mg BID PO ; Start 09/09/16 at 21:00; Stop 09/09/16 at 21 :00; Status DC Carvedilol (COReg) 50 mg BID PO Last administered on 09/11/16 08:18; Start at 21:00; Stop 10/09/16 at 20:59 Dextrose (Dextrose 50%) 25 ml ASDIRECTED PRN IV SEE LABEL COMMENTS; Start 09/09 at 14:00; Stop 10/09/16 at 13:59 Famotidine (Pepcid) 20 mg BID PO Last administered on 09/11/16 08:17; Start at 21:00; Stop 10/09/16 at 20:59 Glucagon (Glucagon) 1 mg ASDIRECTED PRN SC SEE LABEL COMMENTS; Start 09/09/16 at 14:00; Stop 10/09/16 at 13:59 Glucose (Glucose) 16 GM ASDIRECTED PRN PO SEE LABEL COMMENTS; Start 09/09/16 at 14:00; Stop 10/09/16 at 13:59 Home Med (Med Rec Complete!) ASDIRECTED XX ; Start 09/09/16 at 15:45; Stop at 15:49; Status DC Hydralazine HCl (Apresoline) 10 mg BID PO ; Start 09/09/16 at 21:00; Stop at 21:00; Status DC Hydralazine HCl (Apresoline) 20 mg TID PO Last administered on 09/11/16 08:18 ; Start 09/09/16 at 21:00; Stop 09/11/16 at 11:55; Status DC Hydralazine HCl (Apresoline) 30 mg TID PO ; Start 09/11/16 at 16:00; Stop at 15:59 Insulin Detemir (Levemir Insulin) 35 units BID SC Last administered on 09:35; Start 09/09/16 at 21:00; Stop 09/10/16 at 11:50; Status DC Insulin Human Lispro (HumaLOG INSULIN) See Protocol Table AC SC Last administered on 09/11/16 08:15; Start 09/09/16 at 17:30; Stop 10/09/16 at 17:29 Insulin Human Lispro (HumaLOG INSULIN) See Protocol Table QHS SC Last administered on 09/09/16 20:15; Start 09/09/16 at 21:00; Stop 10/09/16 at 20:59 Levetiracetam (Keppra) 750 mg BID PO Last administered on 09/11/16 08:17; Start 09/09/16 at 21:00; Stop 10/09/16 at 20:59 Lisinopril (Prinivil) 10 mg BID PO Last administered on 09/11/16 08:16; Start 09/10/16 at 21:00; Stop 10/10/16 at 20:59 Lisinopril (Prinivil) 10 mg DAILY PO Last administered on 09/10/16 09:33; Start 09/10/16 at 09:00; Stop 09/10/16 at 11:50; Status DC Miscellaneous (Unresolved Patient Own Med Order) SEE LABEL COMMENTS UNRESOLVED XX ; Start 09/10/16 at 00:01; Stop 09/10/16 at 21:22; Status DC Nitroglycerin (Nitrostat (1/ 150)) 0.4 mg Q5MP PRN SL CHEST PAIN Last administered on 09/11/16 03:43; Start 09/11/16 at 03:45; Stop 10/11/16 at 03:44 Non-Formulary Medication 30 ea BID SQ ; Start 09/11/16 at 09:00; Stop 10/11/16 at 08:59; Status UNV Patient Own Medication (Patient'S Own Med) 40 UNITS BID SQ Last administered on 09/11/16 08:16; Start 09/10/16 at 21:00; Stop 10/10/16 at 20:59 Potassium Chloride (Micro-K Extencaps) 20 meq DAILY PO Last administered on 08:18; Start 09/10/16 at 09:00; Stop 10/10/16 at 08:59 Simvastatin (Zocor) 80 mg QHS PO Last administered on 09/10/16 21:34; Start at 21:00; Stop 10/09/16 at 20:59 Tamsulosin HCl (Flomax) 0.4 mg DAILY PO Last administered on 09/11/16 08:17; Start 09/10/16 at 09:00; Stop 10/10/16 at 08:59 Torsemide (Demadex) 10 mg DAILY PO Last administered on 09/11/16 08:17; Start 09/10/16 at 09:00; Stop 10/10/16 at 08:59 ZAIN CROWDER MD Sep 11, 2016 12:19
[2016-09-11 13:02] LABS: FOLATE 8.3 NG/ML (>5.4)
[2016-09-11] MEDS: **hydrALAZINE HCL** 25 MG TAB PO SCH ×2 (13:45→18:16)
[2016-09-11] MEDS ORDERED: **hydrALAZINE** 10 MG TAB PO SCH (16:00)
[2016-09-11] MEDS: ASPIRIN 81 MG ENTERIC TAB PO SCH (18:16)
[2016-09-11] MEDS: SIMVASTATIN 40 MG TAB PO SCH (20:53)
--- NOTE | 2016-09-11 22:29 | ECGEPIP ---
Stationary ECG Study [facility] Test Date: 2016-09-11 Pat Name: KARUNA TAPIA Department: Room: [place] [address] Gender: F Stretcher Operator: CHARISSE GONZALEZ : 1960 Requested By: AL STILES Order Number: [id number] Reading MD: Jeffrey Arevalo Measurements Intervals [place] Rate: 75 P: 56 CA: 184 QRS: 19 QRSD: 102 T: 5 QT: 401 QTc: 448 Interpretive Statements SINUS RHYTHM, Poor R-wave progression NONSPECIFIC ST & T-WAVE ABNORMALITY, Consider digoxin effect Electronically Signed On 09-11-2016 22:28:51 EDT by Jeffrey Arevalo
[2016-09-12] VITALS (8 sets, daily range): BP systolic 142–164; BP diastolic 68–78
[2016-09-12] MEDS: **hydrALAZINE HCL** 25 MG TAB PO SCH ×4 (00:07→17:04)
[2016-09-12 07:01] LABS: MEAN CORPUSCULAR VOLUME 88.2 fl (80.0-96.0); RED CELL DISTRIBUTION WIDTH 13.7 % (11.5-14.5)
[2016-09-12 07:36] LABS: ALBUMIN 2.6 GM/DL (3.2-5.2); ALBUMIN/GLOBULIN RATIO 0.81 (1.00-1.93); ALKALINE PHOSPHATASE 129 U/L (45-117); ALT/SGPT 38 U/L (12-78); ANION GAP 6 MEQ/L (8-16); AST/SGOT 19 U/L (15-37); BILIRUBIN,TOTAL 0.2 MG/DL (0.2-1.0); BLOOD UREA NITROGEN 12 MG/DL (7-18); CALCIUM LEVEL 8.3 MG/DL (8.5-10.1); CARBON DIOXIDE LEVEL 28 MEQ/L (21-32); CHLORIDE LEVEL 105 MEQ/L (98-107); CREATININE FOR GFR 1.01 MG/DL (0.55-1.02); GLOMERULAR FILTRATION RATE > 60.0 (>51); GLUCOSE, FASTING 145 MG/DL (70-105); POTASSIUM SERUM 3.8 MEQ/L (3.5-5.1); SODIUM LEVEL 139 MEQ/L (136-145); TOTAL PROTEIN 5.8 GM/DL (6.4-8.2)
[2016-09-12] MEDS: levETIRAcetam 250MG TABLET (KEPPRA) PO SCH ×2 (08:05→20:24)
[2016-09-12] MEDS: carBAMazepine XR 100 MG TAB PO SCH ×2 (08:05→20:23)
[2016-09-12] MEDS: FAMOTIDINE 20 MG TAB PO SCH ×2 (08:06→20:24)
[2016-09-12] MEDS: TORSEMIDE 10 MG TABLET PO SCH (08:06)
[2016-09-12] MEDS: HumaLOG INSULIN (NovoLOG) PER UNIT SC SCH ×4 (08:10→20:25)
[2016-09-12] MEDS: CARVedilol 12.5 MG TAB PO SCH ×2 (08:10→20:24)
[2016-09-12] MEDS: POTASSIUM CHLORIDE 10 MEQ SR TABLET PO SCH (08:12)
[2016-09-12] MEDS: LISINOPRIL 10 MG TAB PO SCH ×2 (08:12→20:24)
[2016-09-12] MEDS: TAMSULOSIN 0.4 MG CAP PO SCH (08:12)
[2016-09-12] MEDS: amLODIPine 10 MG TAB PO SCH (08:13)
[2016-09-12] MEDS: MIRALAX *UNIT DOSE* 17GM PACKET PO PRN (16:24)
[2016-09-12] MEDS: ASPIRIN 81 MG ENTERIC TAB PO SCH (17:01)
[2016-09-12] MEDS: SIMVASTATIN 40 MG TAB PO SCH (20:24)
[2016-09-13] VITALS (9 sets, daily range): BP systolic 138–162; BP diastolic 62–80
[2016-09-13] MEDS: **hydrALAZINE HCL** 25 MG TAB PO SCH ×5 (00:28→23:47)
[2016-09-13] MEDS: ACETAMINOPHEN TAB 650MG DOSE (2X325MG) PO PRN ×2 (06:09→12:10)
[2016-09-13 06:44] LABS: MEAN CORPUSCULAR HEMOGLOBIN 29.8 pg (27.0-33.0); MEAN CORPUSCULAR HGB CONC 33.9 g/dl (32.0-36.5); MEAN CORPUSCULAR VOLUME 88.1 fl (80.0-96.0); RED CELL DISTRIBUTION WIDTH 13.9 % (11.5-14.5); WHITE BLOOD COUNT 8.4 K/mm3 (4.0-10.0)
[2016-09-13 07:14] LABS: ALBUMIN 2.4 GM/DL (3.2-5.2); ALBUMIN/GLOBULIN RATIO 0.63 (1.00-1.93); BILIRUBIN,TOTAL 0.2 MG/DL (0.2-1.0); CALCIUM LEVEL 8.6 MG/DL (8.5-10.1); CREATININE FOR GFR 1.08 MG/DL (0.55-1.02); GLOMERULAR FILTRATION RATE 55.7 (>51); POTASSIUM SERUM 3.6 MEQ/L (3.5-5.1); TOTAL PROTEIN 6.2 GM/DL (6.4-8.2)
[2016-09-13] MEDS: HumaLOG INSULIN (NovoLOG) PER UNIT SC SCH ×4 (08:07→20:30)
[2016-09-13] MEDS: carBAMazepine XR 100 MG TAB PO SCH ×2 (08:10→20:24)
[2016-09-13] MEDS: TORSEMIDE 10 MG TABLET PO SCH (08:11)
[2016-09-13] MEDS: levETIRAcetam 250MG TABLET (KEPPRA) PO SCH ×2 (08:11→20:28)
[2016-09-13] MEDS: CARVedilol 12.5 MG TAB PO SCH ×2 (08:11→20:26)
[2016-09-13] MEDS: TAMSULOSIN 0.4 MG CAP PO SCH (08:12)
[2016-09-13] MEDS: POTASSIUM CHLORIDE 10 MEQ SR TABLET PO SCH (08:12)
[2016-09-13] MEDS: amLODIPine 10 MG TAB PO SCH (08:12)
[2016-09-13] MEDS: LISINOPRIL 10 MG TAB PO SCH ×2 (08:12→20:29)
[2016-09-13] MEDS: FAMOTIDINE 20 MG TAB PO SCH ×2 (08:13→20:25)
[2016-09-13] MEDS: MIRALAX *UNIT DOSE* 17GM PACKET PO PRN (12:10)
[2016-09-13] MEDS: ASPIRIN 81 MG ENTERIC TAB PO SCH (17:11)
--- NOTE | 2016-09-13 17:32 | IPNPDOC ---
[employer] Progress Note DATE OF SERVICE: 09/13/16 DATE OF ADMISSION: Sep 09, 2016 at 14:35 INPATIENT REHABILITATION ADMISSION DAY: #5 SUBJECTIVE: Patient is a 56-year-old white female with Moyamoya disease resulting in craniotomy and arterial bypass with ischemic nontraumatic brain injury. Patient also complicated by malignant hypertension. Patient without any pain or complaints, she notes today is her son's birthday who is now 4 years old and is here visiting her with her . Patient expresses happiness of improvement in her blood pressure currently with a systolic blood pressure 138. ALLERGIES: See Below MEDICATIONS: Reviewed, see below. OBJECTIVE: VITAL SIGNS: Please see below. PHYSICAL EXAMINATION: GENERAL: Obese middle-age white female in good spirits who is alert and well oriented. HEENT: Healing left temporal craniotomies site otherwise normocephalic. CARDIOVASCULAR: Regular rate and rhythm with normal S1-S2 without S3-S4 murmurs or rubs. 2/4 bilateral radial pulses LUNGS: All perla clear to auscultation. ABDOMEN: Obese, benign with normal bowel sounds in all quadrants. NEUROLOGICAL: Patient alert and oriented 4. Speech is clear coherent and appropriate. Affect is pleasant and cooperative. SKIN: Cranial incision healing well. LABORATORY DATA: Reviewed. Please see below. MICROBIOLOGY: Please see below. IMAGING: No new imaging. DVT prophylaxis ordered?: MIKE hose and aspirin. ASSESSMENT AND PLAN: 1. Rehabilitation of nontraumatic brain injury: Patient tolerating the intensive PT and OT of 3 hours per day and making progress. She is now modified independent to independent in activities and mobilities except for lower extremity dressing, and ambulation on uneven surfaces without assistive device. For the sink she is doing well and needs min assist to contact guard assist levels. Patient appears to be about rate meet all discharge goals. 2. Malignant hypertension: Since 2041 hrs on Wednesday the patient systolic blood pressures ranged between 138 and 162. It appears she is on a reasonable regimen of antihypertensives. I will change patient to every 8 hours vitals. If blood pressure remains good this should not interfere with patient's discharge next day or two. 3. No seizure symptoms: We'll continue the Keppra and Tegretol. 4. Moderate anemia: Holding stable. 5. Creatinine: Showing some drift upwards now 1.08. I will review this with medicine mental hygiene consultant tomorrow. TIME SPENT: Chart Review, examination and documentation required greater than 25 minutes. Allergies Coded Allergies: Cephalexin (Unverified Allergy, Intermediate, HIVES, 12/27/13) Ciprofloxacin (Unverified Allergy, Intermediate, HIVES, 12/27/13) Aminoglycosides (Verified Allergy, Mild, HIVES, 05/30/12) Bacitracin (Verified Allergy, Mild, HIVES, 05/30/12) Cephalosporins (Verified Allergy, Mild, HIVES, DYSPENA, 05/30/12) Neomycin (Verified Allergy, Mild, HIVES, 05/30/12) Polymyxin B (Verified Allergy, Mild, HIVES, 05/30/12) Atorvastatin (Verified Allergy, Unknown, 09/09/16) Bee Venom (Verified Allergy, Unknown, 09/09/16) Contrast Media (Verified Allergy, Unknown, 02/12/03) Penicillins (Verified Allergy, Unknown, 05/30/12) Penicillins Cross Reactors (Verified Allergy, Unknown, 05/30/12) Pravastatin (Verified Allergy, Unknown, 09/09/16) Quinolones (Verified Allergy, Unknown, 05/30/12) SEAFOOD (Unverified Allergy, Unknown, N/V AND RASH, DIFF. BREATHING, 02/06) Ezetimibe (Verified Adverse Reaction, Severe, MUSCLE WEAKNESS, 05/30/12) Statins (Verified Adverse Reaction, Severe, MUSCLE ACHES, 05/30/12) CRESTOR, LIPITOR, PRAVACHOL Vital Signs Vital Signs Date Time Temp Pulse Resp B/P (MAP) Pulse Ox O2 Delivery O2 Flow Rate FiO2 09/13/16 17:15 138/80 09/13/16 14:04 97.9 67 18 96 Room Air Laboratory Data CBC/BMP Laboratory Tests 09/13/16 06:33 Red Blood Count 2.98 L, Mean Corpuscular Volume 88.1, Mean Corpuscular Hemoglobin 29.8, Mean Corpuscular Hemoglobin Concent 33.9, Red Cell Distribution Width 13.9, Calcium Level 8.6, Aspartate Amino Transf (AST/SGOT) 17 , Alanine Aminotransferase (ALT/SGPT) 35, Alkaline Phosphatase 116, Total Bilirubin 0.2, Total Protein 6.2 L, Albumin 2.4 L Labs 24H Laboratory Tests 2 09/12/16 20:19: Bedside Glucose (Misc Panel) 220H 09/13/16 06:33: Anion Gap 6L, Glomerular Filtration Rate 55.7, Blood Urea Nitrogen 13, Creatinine 1.08H, Sodium Level 138, Potassium Level 3.6, Chloride Level 105, Carbon Dioxide Level 27, Calcium Level 8.6, Aspartate Amino Transf (AST/SGOT) 17 , Alanine Aminotransferase (ALT/SGPT) 35, Alkaline Phosphatase 116, Total Bilirubin 0.2, Total Protein 6.2L, Albumin 2.4L, Albumin/Globulin Ratio 0.63L 09/13/16 11:55: Bedside Glucose (Misc Panel) 89 09/13/16 17:04: Bedside Glucose (Misc Panel) 130H Microbiology Microbiology 09/11/16 Urine Culture - Final, Complete Current Medications Current Medications Current Medications Acetaminophen (Tylenol Tab) 650 mg Q6HP PRN PO PAIN Last administered on 12:10; Start 09/09/16 at 14:00; Stop 10/09/16 at 13:59 Amlodipine Besylate (Norvasc) 5 mg DAILY PO ; Start 09/10/16 at 09:00; Stop at 09:00; Status DC Amlodipine Besylate (Norvasc) 10 mg DAILY PO Last administered on 09/13/16 08: 12; Start 09/10/16 at 09:00; Stop 10/10/16 at 08:59 Aspirin (Ecotrin) 81 mg QPM@1800 PO Last administered on 09/13/16 17:11; Start 09/09/16 at 18:00; Stop 10/09/16 at 17:59 Carbamazepine (TEGretol XR) 300 mg BID PO Last administered on 09/13/16 08:10 ; Start 09/09/16 at 21:00; Stop 10/09/16 at 20:59 Carvedilol (COReg) 37.5 mg BID PO ; Start 09/09/16 at 21:00; Stop 09/09/16 at 21 :00; Status DC Carvedilol (COReg) 50 mg BID PO Last administered on 09/13/16 08:11; Start at 21:00; Stop 10/09/16 at 20:59 Dextrose (Dextrose 50%) 25 ml ASDIRECTED PRN IV SEE LABEL COMMENTS; Start 09/09 at 14:00; Stop 10/09/16 at 13:59 Famotidine (Pepcid) 20 mg BID PO Last administered on 09/13/16 08:13; Start at 21:00; Stop 10/09/16 at 20:59 Glucagon (Glucagon) 1 mg ASDIRECTED PRN SC SEE LABEL COMMENTS; Start 09/09/16 at 14:00; Stop 10/09/16 at 13:59 Glucose (Glucose) 16 GM ASDIRECTED PRN PO SEE LABEL COMMENTS; Start 09/09/16 at 14:00; Stop 10/09/16 at 13:59 Home Med (Med Rec Complete!) ASDIRECTED XX ; Start 09/09/16 at 15:45; Stop at 15:49; Status DC Hydralazine HCl (Apresoline) 10 mg BID PO ; Start 09/09/16 at 21:00; Stop at 21:00; Status DC Hydralazine HCl (Apresoline) 20 mg TID PO Last administered on 09/11/16 08:18 ; Start 09/09/16 at 21:00; Stop 09/11/16 at 11:55; Status DC Hydralazine HCl (Apresoline) 25 mg Q6H PO Last administered on 09/13/16 17:15 ; Start 09/11/16 at 12:00; Stop 10/11/16 at 11:59 Hydralazine HCl (Apresoline) 30 mg TID PO ; Start 09/11/16 at 16:00; Stop at 16:00; Status DC Insulin Detemir (Levemir Insulin) 35 units BID SC Last administered on 09:35; Start 09/09/16 at 21:00; Stop 09/10/16 at 11:50; Status DC Insulin Human Lispro (HumaLOG INSULIN) See Protocol Table AC SC Last administered on 09/13/16 17:12; Start 09/09/16 at 17:30; Stop 10/09/16 at 17:29 Insulin Human Lispro (HumaLOG INSULIN) See Protocol Table QHS SC Last administered on 09/09/16 20:15; Start 09/09/16 at 21:00; Stop 10/09/16 at 20:59 Levetiracetam (Keppra) 750 mg BID PO Last administered on 09/13/16 08:11; Start 09/09/16 at 21:00; Stop 10/09/16 at 20:59 Lisinopril (Prinivil) 10 mg BID PO Last administered on 09/13/16 08:12; Start 09/10/16 at 21:00; Stop 10/10/16 at 20:59 Lisinopril (Prinivil) 10 mg DAILY PO Last administered on 09/10/16 09:33; Start 09/10/16 at 09:00; Stop 09/10/16 at 11:50; Status DC Miscellaneous (Unresolved Patient Own Med Order) SEE LABEL COMMENTS UNRESOLVED XX ; Start 09/10/16 at 00:01; Stop 09/10/16 at 21:22; Status DC Nitroglycerin (Nitrostat (1/ 150)) 0.4 mg Q5MP PRN SL CHEST PAIN Last administered on 09/11/16 03:43; Start 09/11/16 at 03:45; Stop 10/11/16 at 03:44 Non-Formulary Medication 30 ea BID SQ ; Start 09/11/16 at 09:00; Stop 10/11/16 at 08:59; Status UNV Patient Own Medication (Patient'S Own Med) 40 UNITS BID SQ Last administered on 09/13/16 08:08; Start 09/10/16 at 21:00; Stop 10/10/16 at 20:59 Polyethylene Glycol (Miralax) 1 pkt DAILYPRN PRN PO CONSTIPATION Last administered on 09/13/16 12:10; Start 09/12/16 at 14:45; Stop 10/12/16 at 14:44 Potassium Chloride (Micro-K Extencaps) 20 meq DAILY PO Last administered on 08:12; Start 09/10/16 at 09:00; Stop 10/10/16 at 08:59 Simvastatin (Zocor) 80 mg QHS PO Last administered on 09/12/16 20:24; Start at 21:00; Stop 10/09/16 at 20:59 Tamsulosin HCl (Flomax) 0.4 mg DAILY PO Last administered on 09/13/16 08:12; Start 09/10/16 at 09:00; Stop 10/10/16 at 08:59 Torsemide (Demadex) 10 mg DAILY PO Last administered on 09/13/16t 08:11; Start 09/10/16 at 09:00; Stop 10/10/16 at 08:59 ZAIN CROWDER MD Sep 13, 2016 17:32
[2016-09-13] MEDS: SIMVASTATIN 40 MG TAB PO SCH (20:28)
[2016-09-14] MEDS: **hydrALAZINE HCL** 25 MG TAB PO SCH (05:40)
[2016-09-14 06:00] VITALS: BP 158/64
[2016-09-14 06:56] LABS: MEAN CORPUSCULAR HEMOGLOBIN 30.3 pg (27.0-33.0); MEAN CORPUSCULAR HGB CONC 34.1 g/dl (32.0-36.5); MEAN CORPUSCULAR VOLUME 88.9 fl (80.0-96.0); RED CELL DISTRIBUTION WIDTH 13.8 % (11.5-14.5); WHITE BLOOD COUNT 8.4 K/mm3 (4.0-10.0)
[2016-09-14 07:15] LABS: ALBUMIN 2.6 GM/DL (3.2-5.2); ALBUMIN/GLOBULIN RATIO 0.68 (1.00-1.93); BILIRUBIN,TOTAL 0.2 MG/DL (0.2-1.0); CALCIUM LEVEL 8.5 MG/DL (8.5-10.1); CREATININE FOR GFR 1.03 MG/DL (0.55-1.02); GLOMERULAR FILTRATION RATE 58.8 (>51); POTASSIUM SERUM 3.8 MEQ/L (3.5-5.1); TOTAL PROTEIN 6.4 GM/DL (6.4-8.2)
[2016-09-14 08:13] VITALS: BP 158/64
[2016-09-14] MEDS: amLODIPine 10 MG TAB PO SCH (08:13)
[2016-09-14] MEDS: POTASSIUM CHLORIDE 10 MEQ SR TABLET PO SCH (08:13)
[2016-09-14] MEDS: HumaLOG INSULIN (NovoLOG) PER UNIT SC SCH (08:14)
[2016-09-14] MEDS: LISINOPRIL 10 MG TAB PO SCH (08:14)
[2016-09-14] MEDS: FAMOTIDINE 20 MG TAB PO SCH (08:14)
[2016-09-14] MEDS: CARVedilol 12.5 MG TAB PO SCH (08:15)
[2016-09-14] MEDS: carBAMazepine XR 100 MG TAB PO SCH (08:16)
[2016-09-14] MEDS: levETIRAcetam 250MG TABLET (KEPPRA) PO SCH (08:17)
[2016-09-14] MEDS: TAMSULOSIN 0.4 MG CAP PO SCH (08:17)
[2016-09-14] MEDS: TORSEMIDE 10 MG TABLET PO SCH (08:18)
[2016-09-14] MEDS ORDERED: CARV12.5 PO (09:59)
[2016-09-14] MEDS ORDERED: TOUJ1.2I SC (09:59)
[2016-09-14] MEDS ORDERED: FLOM5CAP PO (09:59)
[2016-09-14] MEDS ORDERED: NITR4TASL SL (09:59)
[2016-09-14] MEDS ORDERED: HYDR25TA PO (09:59)
--- NOTE | 2016-09-16 06:44 | PMRDS ---
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 Patient also with headaches and deficits related to diminished blood flow. Has had a right temporal craniotomy approximately 6 months ago with temporal artery anastomosis on the right and this provided some help and then, on 08/31/2016, had this repeated as a left superficial temporal artery encephalomyosynangiosis or indirect bypass for symptomatic moyamoya disease on 08/31/2016. This was performed down at [facility], and patient had an ischemic period with transient left hemiparesis. Patient was reported as having been stabilized and able to participate in and still needing to improve balance, mobility including distance, but also safety in activities of daily living (ADLs), even though she was at a minimal assist level and was transferred on 09/09/2016 for neurological rehabilitation of the cerebral ischemia/nontraumatic brain injury. Upon arrival, patient was found to have malignant hypertension with a blood pressure of 232/95, pulse of 80. Patient had previously been managed with IV labetalol, which accompanying records suggest had been stopped more than 48 hours earlier, though patient reports receiving IV medications and an IV right up until she got in the ambulette. PATIENT PROCEDURES: No procedures were performed on this unit. DIAGNOSTIC AND LABORATORY DATA: CBC performed showing moderate anemia, hemoglobin of 9.9, hematocrit of 29.2, which dropped from 09/10/2016 to 09/11/2016 to 8.4 and 24.3 but then has improved back to today's 9.0 and 26.3%. Chemistry showed normal electrolytes on admission, creatinine of 0.95, though today on discharge, electrolytes remain normal. BUN is 14, but creatinine is 1.03. Fasting blood sugar this morning was 108. Liver function tests are now normal; initially, did show elevated alkaline phosphatase of 129. Albumin on admission was 2.3 and today was 2.6. B12 and folate levels were 861 and 8.3. Tegretol trough 8.4. UA was suggestive of contamination versus infection. Urine culture and sensitivity, however, was negative for growth. PAST MEDICAL HISTORY: Moyamoya disease status post right superficial temporal artery encephalomyosynangiosis, status post CVA times two, type 2 diabetes mellitus with chronic kidney disease stage III and acute kidney disease during preadmission to this hospital, morbid obesity with obstructive sleep apnea, chronic obstructive pulmonary disease (COPD) and asthma, atherosclerotic cardiovascular disease with coronary artery disease, hypertension, and hyperlipidemia, as well as several stents in the heart and the CVAs noted above and transient ischemic attacks in the past. PAST SURGICAL HISTORY: Includes the stents, the appendectomy, and left breast cancer and lumpectomy along with the bilateral superficial temporal artery encephalomyosynangiosis. HOSPITAL COURSE: Patient admitted to acute rehabilitation unit on the afternoon of 09/09/2016 and was seen shortly thereafter by medicine consultant in ergonomics and safety, Dr. Aminah Jimenes, who increased patient's oral antihypertensives, and blood pressure reduced systolically from 232 to 216 down to 189 over the next 2 hours. Patient has had further adjustment of medication and currently is running systolic blood pressures in the last 2 days in the 138-162 range. Patient also had speech-language pathology evaluation, physical and occupational therapy evaluation, and 3 hours a day of physical and occupational therapy showing improvement in overall function, going from minimal assist and most ADLs , transfers, and about 100 feet ambulation with front wheel walker to 500 feet ambulation with four wheeled walker and no assist; otherwise, modified independent, improvement in balance, and able to do 10 feet of gaiting on uneven surfaces with supervision, contact guard assist, and become modified independent in ADLs with the exception of lower extremity dressing. Patient has been showing good cognition and learning techniques and is felt to be ready for discharge today, 09/14/2016. DISCHARGE MEDICATIONS: - Patient's Coreg has been increased to 50 mg twice a day. - Hydralazine has been increased to 25 mg every 6 hours. - Patient did have one period of reported chest pain that cleared with a single Nitrostat 0.4 mg sublingual tablet and had negative cardiac enzyme immediately and 6 hours later. - Also, acetaminophen 650 mg every 4 hours as needed for pain, not to exceed 4 grams per day. - aspirin 81 mg daily - Tegretol extended release 300 mg twice a day - vitamin D3, 1000 international unit tablets three tablets daily - Keppra 750 mg twice a day - lisinopril 10 mg daily - Klor-Con M10 one 10 mEq tablet twice a day - Zantac 150 one tablet every evening - Senna 8.6 mg two tablets at bedtime for bowel program - simvastatin 80 mg nightly - torsemide 10 mg daily COMPLICATIONS: Are none, though concern about patient transported who had malignant hypertension upon arrival. No new neurological changes following that event. DISCHARGE PLAN: Patient is discharged to home with her today. She is to have outpatient physical therapy approximately 2-3 times a week for 2-4 weeks. Continue working on overall endurance, balance, and flexibility. Patient to followup with her primary care team within the week to further adjust any hypertensive medications and to be seen by [facility] within the week for care of the left temporal craniotomy and its dressing. TIME SPENT ON DISCHARGE: Is greater than 35 minutes. MTDD
== END 2016-09-14 11:30 | disposition home or self-care (01) | DRG 58 ==
LOC: M PM&R 14:35
PROVIDERS: ADMIT Physical Medicine & Rehabilitation; ATTEND Physical Medicine & Rehabilitation
DX: R26.89 Other abnormalities of gait and mobility (principal); I67.5 Moyamoya disease; E11.29 Type 2 diabetes mellitus with other diabetic kidney complication; E66.01 Morbid (severe) obesity due to excess calories; E88.09 Other disorders of plasma-protein metabolism, not elsewhere classified; N18.3 Chronic kidney disease, stage 3 (moderate); G47.33 Obstructive sleep apnea (adult) (pediatric); J45.909 Unspecified asthma, uncomplicated; I12.9 Hypertensive chronic kidney disease with stage 1 through stage 4 chronic kidney disease, or unspecified chronic kidney disease; K21.9 Gastro-esophageal reflux disease without esophagitis; E78.5 Hyperlipidemia, unspecified; G40.909 Epilepsy, unspecified, not intractable, without status epilepticus; R07.9 Chest pain, unspecified; R27.8 Other lack of coordination; G43.909 Migraine, unspecified, not intractable, without status migrainosus; D64.9 Anemia, unspecified; I87.2 Venous insufficiency (chronic) (peripheral); I25.10 Atherosclerotic heart disease of native coronary artery without angina pectoris; Z86.73 Personal history of transient ischemic attack (TIA), and cerebral infarction without residual deficits; Z95.9 Presence of cardiac and vascular implant and graft, unspecified; Z85.3 Personal history of malignant neoplasm of breast; Z79.899 Other long term (current) drug therapy; Z82.49 Family history of ischemic heart disease and other diseases of the circulatory system; Z79.4 Long term (current) use of insulin; Z79.82 Long term (current) use of aspirin; Z88.1 Allergy status to other antibiotic agents; Z88.0 Allergy status to penicillin; Z88.8 Allergy status to other drugs, medicaments and biological substances; Z91.013 Allergy to seafood; Z91.041 Radiographic dye allergy status; Z91.030 Bee allergy status; Z99.89 Dependence on other enabling machines and devices; Z90.49 Acquired absence of other specified parts of digestive tract; Z98.51 Tubal ligation status; Z83.3 Family history of diabetes mellitus; Z80.1 Family history of malignant neoplasm of trachea, bronchus and lung

== ENCOUNTER → 2017-02-05 | Outpatient (CLI) | payer OTHER ==
[~2017-02-05] MED LIST changes: +ACET1TAB17 PO; +AMLO5TAB2 PO; +APIDINJ SC; +ASPI1TAB PO; +BISA10SU4 PR; +CARB300C7 PO; +CARV12.5 PO; +FLOM5CAP PO; +HEPA50VL SC; +HYDR10TAB PO; +HYDR25TA PO; +KEPP1TAB2 PO; +LISI10TA4 PO; +METO10VL IV; +NITR4TASL SL; +OXYC-517 PO; +POTA10CA PO; +SENN8.6T17 PO; +TORS10TA3 PO; +TOUJ1.2I SC; +VITA-121 PO; +ZOCO80TA PO
== END ==
LOC: M WUC 16:12
PROVIDERS: ATTEND Physician Assistant Medical
DX: G40.909 Epilepsy, unspecified, not intractable, without status epilepticus (principal)

== ENCOUNTER → 2017-08-16 | Outpatient (CLI) | payer OTHER ==
[2017-08-16 14:19] LABS: CARBAMAZEPINE (TEGRETOL) LEVEL 4.7 UG/ML (4.0-10.0)
[2017-08-18 14:47] LABS: LEVETIRACETAM (KEPPRA) 38.4 ug/mL (10.0-40.0)
== END ==
LOC: M WUC 10:25
DX: G43.909 Migraine, unspecified, not intractable, without status migrainosus (principal); R94.01 Abnormal electroencephalogram [EEG]
CPT/HCPCS: 80156

== ENCOUNTER → 2017-12-23 | Outpatient (CLI) | payer OTHER ==
[2017-12-23 14:07] LABS: ALBUMIN 3.8 GM/DL (3.2-5.2); ALBUMIN/GLOBULIN RATIO 1.15 (1.00-1.93); ALKALINE PHOSPHATASE 99 U/L (45-117); ALT/SGPT 30 U/L (12-78); AST/SGOT 15 U/L (7-37); BILIRUBIN,DIRECT < 0.1 MG/DL (0.0-0.2); BILIRUBIN,TOTAL 0.3 MG/DL (0.2-1.0); CHOLESTEROL LEVEL 146 MG/DL (<200); HDL CHOLESTEROL 50 MG/DL (>40); LDL CHOLESTEROL 56 MG/DL (<100); NON-HDL-C 96 MG/DL; TOTAL PROTEIN 7.1 GM/DL (6.4-8.2); TRIGLYCERIDES LEVEL 202 MG/DL (<150)
== END ==
LOC: M WUC 11:11
DX: E78.5 Hyperlipidemia, unspecified (principal); I10 Essential (primary) hypertension; I25.10 Atherosclerotic heart disease of native coronary artery without angina pectoris; E66.9 Obesity, unspecified; Z86.73 Personal history of transient ischemic attack (TIA), and cerebral infarction without residual deficits
CPT/HCPCS: 80076

== ENCOUNTER → 2017-12-23 | Outpatient (CLI) | payer OTHER ==
[2017-12-25 10:33] LABS: LEVETIRACETAM (KEPPRA) 30.8 ug/mL (10.0-40.0)
== END ==
LOC: M WUC 11:06
DX: G43.909 Migraine, unspecified, not intractable, without status migrainosus (principal); R94.01 Abnormal electroencephalogram [EEG]; Z51.81 Encounter for therapeutic drug level monitoring; Z79.899 Other long term (current) drug therapy
CPT/HCPCS: 80156

== ENCOUNTER → 2018-03-07 | Outpatient (REF) | payer OTHER ==
[~2018-03-07] MED LIST changes: -ACET1TAB17 PO; +ACET1TAB55 PO; -AMLO5TAB2 PO; +AMLO5TAB6 PO; -ARIM1TAB4 PO; +ARIM1TAB5 PO; +BENZ-18 PO; -BENZ100C5 PO; +CARB1CAP PO; -CARB300C7 PO; +FLOM0.4C39 PO; -FLOM5CAP PO; +IPRA0.00 INH; -IPRASOL4 INH; +KLOR10TA76 PO; +MILK120011 PO; -MILKSUS PO; -POTA10CA PO; -QVAR1AER2 INH; +QVAR80AE10 INH; +SPIR-10 PO; -SPIR25TA2 PO; +TIZA4CAP PO; -TIZA4CAP3 PO; -ZOFR8TAB PO; +ZOFR8TAB24 PO
[2018-03-07 14:43] LABS: HEMOGLOBIN A1c 8.6 %
== END ==
LOC: M SFHCPLAZ 10:50
PROVIDERS: ATTEND Nurse Practitioner Adult Health
DX: E11.22 Type 2 diabetes mellitus with diabetic chronic kidney disease (principal)

== ENCOUNTER → 2018-06-17 | Outpatient (CLI) | payer OTHER ==
[~2018-06-17] MED LIST changes: -/AMLO25TA PO; -/INSUNPH SC; -/INSUREG SC; -/METO25TAB GT; -ACET50TA PO; -AMMO12CR4 EXT; +AMMO12CR7 EXT; -ASPI1TAB PO; +ASPI81TA26 PO; -CARB1CAP PO; +CARB300C6 PO; +HEPA1INJ23 SC; -HEPA50VL SC; +LISI40TA52 FT; +LISI40TA52 PO; -LISI40TAB FT; -LISI40TAB PO; +MAPA500T17 PO; +METO-346 PO; -METO12TA PO; +METO1TAB87 GT; +METO200T41 PO; +NORV2TAB PO; +NOVO1INJ2 SC; +NOVO1INJ3 SC; +OXYC1TAB23 PO; -PERCOCET PO; -TOPR200T PO
--- NOTE | 2018-06-17 14:58 | REPMRS ---
Patient History The patient states she has not had a clinical breast exam in over a year. No known family history of cancer. Benign radio exam breast specimen, September 12, 2013. Benign localization of breast nodule of the left breast, September 12, 2013. Took unspecified hormones for 1 year. 3D TOMOSYNTHESIS WAS PERFORMED. Digital Woman Screen Mammo: June 17, 2018 - Exam #: [id number] Bilateral CC and MLO view(s) were taken. Technologist: Mary Arias, Technologist Prior study comparison: September 23, 2015, digital woman screen mammo performed at [facility] August 23, 2014, digital woman screen mammo performed at [facility]. FINDINGS: There are scattered fibroglandular densities. There has been no change in the appearance of the mammogram from the prior studies. There is a mild amount of residual fibroglandular tissue which is fairly symmetric. There is no interval development of dominant mass, architectural distortion, or clustered microcalcification suggestive of malignancy. Assessment: BI-RADS/ACR category 1 mammogram. Negative Mammogram. Recommendation Routine screening mammogram in 1 year (for women over age 40). This mammogram was interpreted with the aid of an FDA-approved computer-aided dectection system. Electronically Signed By: Jermain Sanchez MD 06/17/18 1900
== END ==
LOC: M WHC 11:20
PROVIDERS: ATTEND Nurse Practitioner Adult Health
DX: Z12.31 Encounter for screening mammogram for malignant neoplasm of breast (principal); Z92.23 Personal history of estrogen therapy

== ENCOUNTER → 2018-06-20 | Outpatient (REF) | payer OTHER ==
[2018-06-20 13:50] LABS: CHOLESTEROL RISK RATIO 2.944 (<5)
[2018-06-20 14:03] LABS: HEMOGLOBIN A1c 8.7 %
== END ==
LOC: M SFHCPLAZ 10:58
PROVIDERS: ATTEND Nurse Practitioner Adult Health
DX: E11.22 Type 2 diabetes mellitus with diabetic chronic kidney disease (principal)

== ENCOUNTER → 2018-11-28 | Outpatient (CLI) | payer OTHER ==
--- NOTE | 2018-11-28 15:11 | REP ---
Right hip: Two views. History: Pain. Findings: AP and frog-leg views of the right hip demonstrate vascular calcification and a prominent tendon insertion site spurring. Femoral head is smooth and rounded. There is mild acetabular spurring. No erosive changes seen. No fracture is noted. Impression: Mild osteoarthritis. Tendon insertion site spurring and vascular calcification noted. No acute bony abnormality. Electronically Signed by Abhilash Zuniga MD 11/28/2018 03:21 P
== END ==
LOC: M WUC 14:03
PROVIDERS: ATTEND Physician Assistant Medical
DX: R56.9 Unspecified convulsions (principal)

== ENCOUNTER → 2018-12-29 | Outpatient (REF) | payer OTHER ==
[2018-12-29 13:57] LABS: HEMOGLOBIN A1c 8.3 %
== END ==
LOC: M SFHCPLAZ 11:12
PROVIDERS: ATTEND Nurse Practitioner Adult Health
DX: E11.22 Type 2 diabetes mellitus with diabetic chronic kidney disease (principal)

== ENCOUNTER → 2019-03-02 | Outpatient (REF) | payer OTHER ==
[2019-03-02 14:14] LABS: ALBUMIN 3.5 GM/DL (3.2-5.2); CALCIUM LEVEL 8.8 MG/DL (8.5-10.1); CREATININE FOR GFR 2.18 MG/DL (0.55-1.30); GLOMERULAR FILTRATION RATE 24.6 (>51); PHOSPHORUS LEVEL 4.4 MG/DL (2.5-4.9); POTASSIUM SERUM 4.6 MEQ/L (3.5-5.1); URIC ACID 5.7 MG/DL (2.6-6.0)
== END ==
LOC: M LAB REF 13:37
PROVIDERS: ATTEND Internal Medicine Nephrology
DX: M10.9 Gout, unspecified (principal); N18.3 Chronic kidney disease, stage 3 (moderate)

== ENCOUNTER → 2019-11-20 | Outpatient (CLI) | payer OTHER ==
[~2019-11-20] MED LIST changes: +AMLO1TAB24 PO; -AMLO5TAB6 PO; -MONT10TA2 PO; +MONT10TA4 PO
--- NOTE | 2019-11-21 14:20 | REP ---
RIGHT HIP SERIES HISTORY: Fell three weeks ago, lateral pain. TECHNIQUE: Two views of the right hip are performed. FINDINGS: There is no evidence of acute fracture or dislocation. There is mild joint space narrowing, subchondral sclerosis, and spurring at the hip joint. There mild tendinous calcification along the greater trochanter. IMPRESSION: Mild degenerative changes. No fracture or dislocation. MTDD
== END ==
LOC: M WUC 08:48
PROVIDERS: ATTEND Physician Assistant Medical
DX: M25.551 Pain in right hip (principal)

== ENCOUNTER → 2019-12-29 | Outpatient (CLI) | payer OTHER | LOC: M LABSMTC 13:45 | PROVIDERS: ATTEND Pediatrics | DX: Z20.828 Contact with and (suspected) exposure to other viral communicable diseases (principal) | CPT/HCPCS: C9803; U0003 ==

== ENCOUNTER → 2020-04-16 | Outpatient (REF) | payer OTHER ==
[~2020-04-16] MED LIST changes: +LISI10TA22 PO; -LISI10TA4 PO; +MONT10TA10 PO; -MONT10TA4 PO
[2020-04-16 16:19] LABS: HEMOGLOBIN A1c 11.6 %
[2020-04-16 16:35] LABS: ALBUMIN 3.6 GM/DL (3.2-5.2); BILIRUBIN,TOTAL 0.3 MG/DL (0.2-1.0); CALCIUM LEVEL 9.8 MG/DL (8.8-10.2); CHOLESTEROL RISK RATIO 3.47 (<5); CREATININE FOR GFR 2.15 MG/DL (0.55-1.30); GLOMERULAR FILTRATION RATE 24.9 (>45); POTASSIUM SERUM 5.2 MEQ/L (3.5-5.1); THYROID STIMULATING HORMONE 6.06 uIU/ML (0.358-3.740); TOTAL PROTEIN 7.3 GM/DL (6.4-8.2)
== END ==
LOC: M SFHCPLAZ 11:12
PROVIDERS: ATTEND Nurse Practitioner Adult Health
DX: E11.22 Type 2 diabetes mellitus with diabetic chronic kidney disease (principal)

== ENCOUNTER → 2021-09-17 | Outpatient (REF) | payer OTHER ==
[~2021-09-17] MED LIST changes: +ASPI-569 PO; -ASPI81TAEC PO; -EFFI10TA4 PO; +EFFI10TA7 PO; -KLOR10TA76 PO; -MONT10TA10 PO; +MONT10TA97 PO; +POTA-136 PO
[2021-09-17 17:54] LABS: PERCENT SATURATION 14.2 % (13.2-45.0)
== END ==
LOC: M LAB REF 16:44
PROVIDERS: ATTEND Internal Medicine Nephrology
DX: D50.9 Iron deficiency anemia, unspecified (principal)

== ENCOUNTER → 2022-02-10 | Outpatient (CLI) | payer OTHER ==
[2022-02-10 14:16] LABS: HEMOGLOBIN A1c 9.5 % (4.0-6.0)
[2022-02-10 14:23] LABS: ALBUMIN 3.8 G/DL (3.2-5.2); ALKALINE PHOSPHATASE 100 U/L (46-116); ALT/SGPT 14 U/L (7.0-40); AST/SGOT 13 U/L (<34); BILIRUBIN,TOTAL < 0.2 MG/DL (0.3-1.2); BLOOD UREA NITROGEN 88 MG/DL (9-23); CALCIUM LEVEL 9.9 MG/DL (8.3-10.6); CARBON DIOXIDE LEVEL 24 MMOL/L (20-31); CHLORIDE LEVEL 94 MMOL/L (98-107); CHOLESTEROL LEVEL 172 MG/DL (<200); CHOLESTEROL RISK RATIO 3.29 (<5); CREATININE FOR GFR 2.97 MG/DL (0.55-1.30); GLUCOSE, FASTING 284 MG/DL (74-106); HDL CHOLESTEROL 52.2 MG/DL (>40); NON-HDL-C 120 MG/DL; POTASSIUM SERUM 4.8 MMOL/L (3.5-5.1); SODIUM LEVEL 128 MMOL/L (136-145); TOTAL PROTEIN 7.2 G/DL (5.7-8.2); TRIGLYCERIDES LEVEL 319 MG/DL (<150)
[2022-02-10 14:25] LABS: THYROID STIMULATING HORMONE 5.174 uIU/ML (0.55-4.78)
== END ==
LOC: M PLALAB 11:43
PROVIDERS: ATTEND Nurse Practitioner Adult Health
DX: E11.22 Type 2 diabetes mellitus with diabetic chronic kidney disease (principal); N18.9 Chronic kidney disease, unspecified; E78.2 Mixed hyperlipidemia

== ENCOUNTER → 2022-08-20 | Outpatient (CLI) | payer OTHER ==
[~2022-08-20] MED LIST changes: +SIMV-254 PO; -ZOCO40TA PO
[2022-08-20 16:20] LABS: HEMATOCRIT 30.2 % (36.0-47.0); MEAN CORPUSCULAR HEMOGLOBIN 31.1 pg (27.0-33.0); MEAN CORPUSCULAR HGB CONC 33.1 g/dl (32.0-36.5); MEAN CORPUSCULAR VOLUME 93.8 fl (80.0-96.0); PLATELET COUNT, AUTOMATED 376 10^3/uL (150-450); RED BLOOD COUNT 3.22 10^6/uL (4.00-5.40); WHITE BLOOD COUNT 11.2 10^3/uL (4.0-10.0)
[2022-08-20 16:42] LABS: ALKALINE PHOSPHATASE 111 U/L (46-116); ALT/SGPT 22 U/L (7.0-40); AST/SGOT < 8 U/L (<34); BILIRUBIN,TOTAL 0.2 MG/DL (0.3-1.2); BLOOD UREA NITROGEN 84 MG/DL (9-23); CALCIUM LEVEL 9.5 MG/DL (8.3-10.6); CARBON DIOXIDE LEVEL 28 MMOL/L (20-31); CHLORIDE LEVEL 97 MMOL/L (98-107); CHOLESTEROL LEVEL 192 MG/DL (<200); CHOLESTEROL RISK RATIO 3.39 (<5); CREATININE FOR GFR 2.87 MG/DL (0.55-1.30); GLOMERULAR FILTRATION RATE 17.7 (>45); GLUCOSE, FASTING 215 MG/DL (74-106); HDL CHOLESTEROL 56.5 MG/DL (>40); LDL CHOLESTEROL 85.7 MG/DL (<100); NON-HDL-C 135.5 MG/DL; POTASSIUM SERUM 4.8 MMOL/L (3.5-5.1); SODIUM LEVEL 132 MMOL/L (136-145); TOTAL 25(OH) VITAMIN D 43.5 NG/ML (20.0-100.0); TOTAL PROTEIN 7.2 G/DL (5.7-8.2); TRIGLYCERIDES LEVEL 249 MG/DL (<150)
[2022-08-20 17:22] LABS: PTH INTACT 94.6 PG/ML (18.5-88.0)
[2022-08-20 18:28] LABS: HEMOGLOBIN A1c 8.5 % (4.0-6.0)
== END ==
LOC: M PLAIMG 12:32
PROVIDERS: ATTEND Nurse Practitioner Adult Health
DX: M25.531 Pain in right wrist (principal); E11.22 Type 2 diabetes mellitus with diabetic chronic kidney disease; R94.01 Abnormal electroencephalogram [EEG]

== ENCOUNTER → 2022-10-27 | Outpatient (REF) | payer OTHER ==
[2022-10-28 11:12] LABS: PERCENT SATURATION 20.3 % (13.2-45.0)
== END ==
LOC: M LAB REF 09:51
PROVIDERS: ATTEND Internal Medicine Nephrology
DX: D50.9 Iron deficiency anemia, unspecified (principal)

== ENCOUNTER → 2023-05-10 | Outpatient (REF) | payer OTHER ==
[~2023-05-10] MED LIST changes: +HYDR-161 PO; -HYDR10TAB PO; -HYDR25TA PO; +HYDR25TA88 PO
[2023-05-10 12:19] LABS: HEPATITIS B SURFACE ANTIBODY NEGATIVE (POSITIVE)
[2023-05-10 12:51] LABS: HEPATITIS B CORE ANTIBODY IGM NEGATIVE (NEGATIVE); HEPATITIS C VIRUS ABY INDEX 0.03 INDEX (<0.8)
== END ==
LOC: M LAB REF 10:53
PROVIDERS: ATTEND Internal Medicine Nephrology
DX: N18.6 End stage renal disease (principal)

== ENCOUNTER → 2023-06-11 | Outpatient (CLI) | payer OTHER ==
[~2023-06-11] MED LIST changes: +ECOT81TA5 PO; +TIZA4CAP3 PO; +TRUL0.5I SC
[2023-06-11 13:33] LABS: BASO # 0.1 10^3/uL (0.0-0.2); BASO % 0.9 % (0.0-1.0); EOS # 0.4 10^3/uL (0.0-0.5); EOS % 4.3 % (0.0-3.0); HEMATOCRIT 25.3 % (36.0-47.0); HEMOGLOBIN 8.3 g/dl (12.0-15.5); LYMPH # 2.1 10^3/uL (1.5-5.0); LYMPH % 23.1 % (24.0-44.0); MEAN CORPUSCULAR HEMOGLOBIN 32.2 pg (27.0-33.0); MEAN CORPUSCULAR HGB CONC 32.8 g/dl (32.0-36.5); MEAN CORPUSCULAR VOLUME 98.1 fl (80.0-96.0); MONO # 0.6 10^3/uL (0.0-0.8); MONO % 6.1 % (2.0-8.0); NEUTROPHILS % 64.8 % (36.0-66.0); PLATELET COUNT, AUTOMATED 340 10^3/uL (150-450); RED BLOOD COUNT 2.58 10^6/uL (4.00-5.40); WHITE BLOOD COUNT 9.3 10^3/uL (4.0-10.0)
[2023-06-11 13:50] LABS: HEMOGLOBIN A1c 8.4 % (4.0-6.0)
[2023-06-11 14:22] LABS: ALBUMIN 3.1 G/DL (3.2-5.2); BILIRUBIN,TOTAL 0.2 MG/DL (0.3-1.2); CALCIUM LEVEL 9.3 MG/DL (8.3-10.6); CREATININE FOR GFR 2.75 MG/DL (0.55-1.30); GLOMERULAR FILTRATION RATE 18.6 (>45); POTASSIUM SERUM 5.1 MMOL/L (3.5-5.1); TOTAL PROTEIN 6.3 G/DL (5.7-8.2)
== END ==
LOC: M PLALAB 09:29
PROVIDERS: ATTEND Family Medicine
DX: Z01.810 Encounter for preprocedural cardiovascular examination (principal); E11.22 Type 2 diabetes mellitus with diabetic chronic kidney disease

== ENCOUNTER → 2023-06-18 | Outpatient (CLI) | payer OTHER | LOC: M PLALAB 08:45 | PROVIDERS: ATTEND Internal Medicine Nephrology | DX: N18.6 End stage renal disease (principal) ==

== ENCOUNTER 2023-06-21 09:08 | Day surgery (SDC) | payer OTHER ==
[~2023-06-21] VITALS: Ht 157.5 cm; Wt 85.4 kg
[2023-06-21] MEDS ORDERED: INSULIN LISPRO (NovoLOG) PER UNIT SC PRN (09:45)
[2023-06-21] MEDS ORDERED: GLUCAGON INJ 1MG VIAL SC PRN (09:45)
[2023-06-21] MEDS ORDERED: DEXTROSE 50% 50ML SYRINGE IV PRN (09:45)
[2023-06-21] MEDS ORDERED: NS 1,000 ML IV SCH ×2 (09:45→12:00)
[2023-06-21] MEDS ORDERED: GLUCOSE 4 GM CHEW PO PRN (09:45)
[2023-06-21] MEDS: CelecoXIB 400 MG CAP PO ONE (10:47)
[2023-06-21] MEDS: ceFAZolin SOD 2 GM in IV 1 EA IV ONE (11:10)
[2023-06-21] MEDS ORDERED: SUGAMMADEX SODIUM 500 MG/5 ML VIAL (BRIDION) As Ordered ONE (11:46)
[2023-06-21] MEDS: HEPARIN SOD (PORCINE) 5000UNITS/ML 1ML VIAL/SYRINGE As Ordered ONE (11:48)
[2023-06-21] MEDS ORDERED: MIDAZOLAM INJ 2MG/2ML VIAL As Ordered ONE (11:49)
[2023-06-21] MEDS ORDERED: fentaNYL 100 MCG/2 ML INJECTION As Ordered ONE (11:50)
[2023-06-21] MEDS ORDERED: LIDOCAINE 2% 100MG/5ML SDV (FOR ANES.) As Ordered ONE (11:50)
[2023-06-21] MEDS ORDERED: ROCURONIUM BROMIDE 50MG/5ML VIAL As Ordered ONE (11:50)
[2023-06-21] MEDS ORDERED: ONDANSETRON 4MG 2ML VIAL As Ordered ONE (11:51)
[2023-06-21] MEDS ORDERED: METOCLOPRAMIDE INJ 10MG/2ML VIAL As Ordered ONE (11:51)
[2023-06-21] MEDS ORDERED: propofoL 200 MG/20 ML VIAL As Ordered ONE (11:51)
[2023-06-21] MEDS ORDERED: fentaNYL 100 MCG/2 ML INJECTION IV PRN (12:00)
[2023-06-21] MEDS ORDERED: oxyCODONE 5MG TAB PO PRN (12:00)
[2023-06-21] MEDS ORDERED: ONDANSETRON 4MG 2ML VIAL IV PRN (12:00)
[2023-06-21] MEDS ORDERED: diphenhydrAMINE 50MG/ML VIAL IV PRN (12:00)
[2023-06-21 13:00] VITALS: BP 139/63; TEMP 97.8; O2SAT 99
== END 2023-06-21 13:24 | disposition home or self-care (01) ==
LOC: M SDC 09:08
PROVIDERS: ATTEND Surgery
DX: N18.6 End stage renal disease (principal); I25.10 Atherosclerotic heart disease of native coronary artery without angina pectoris; I12.0 Hypertensive chronic kidney disease with stage 5 chronic kidney disease or end stage renal disease; I25.2 Old myocardial infarction; E11.9 Type 2 diabetes mellitus without complications; Z86.73 Personal history of transient ischemic attack (TIA), and cerebral infarction without residual deficits; G47.30 Sleep apnea, unspecified; G43.909 Migraine, unspecified, not intractable, without status migrainosus; M19.90 Unspecified osteoarthritis, unspecified site; J45.909 Unspecified asthma, uncomplicated; R56.9 Unspecified convulsions; Z88.8 Allergy status to other drugs, medicaments and biological substances; Z88.1 Allergy status to other antibiotic agents; Z91.041 Radiographic dye allergy status; Z88.0 Allergy status to penicillin; Z88.3 Allergy status to other anti-infective agents; Z91.013 Allergy to seafood; Z79.899 Other long term (current) drug therapy; Z79.82 Long term (current) use of aspirin; Z79.85 Long-term (current) use of injectable non-insulin antidiabetic drugs
CPT/HCPCS: 36415; 49324; 84132; J0665; J0690; J2250; J2405; J2765; J3010

== ENCOUNTER → 2023-06-25 | Outpatient (REF) | payer OTHER ==
[2023-06-25 18:21] LABS: HEPATITIS B SURFACE ANTIBODY NEGATIVE (POSITIVE)
[2023-06-25 18:33] LABS: HEPATITIS B SURFACE ANTIGEN NEGATIVE (NEGATIVE)
[2023-06-25 18:54] LABS: HEPATITIS B CORE ANTIBODY IGM NEGATIVE (NEGATIVE); HEPATITIS C VIRUS ABY INDEX < 0.02 INDEX (<0.8)
== END ==
LOC: M PLALAB 16:55
PROVIDERS: ATTEND Internal Medicine Nephrology
DX: N18.6 End stage renal disease (principal)

== ENCOUNTER → 2023-12-03 | Outpatient (CLI) | payer MEDICARE, OTHER ==
[2023-12-03 14:59] LABS: ALBUMIN 3.1 G/DL (3.2-5.2); ALKALINE PHOSPHATASE 87 U/L (46-116); ALT/SGPT 20 U/L (7.0-40); AST/SGOT 10 U/L (<34); BILIRUBIN,TOTAL < 0.2 MG/DL (0.3-1.2); BLOOD UREA NITROGEN 76 MG/DL (9-23); CALCIUM LEVEL 9.1 MG/DL (8.3-10.6); CARBON DIOXIDE LEVEL 28 MMOL/L (20-31); CHLORIDE LEVEL 102 MMOL/L (98-107); CHOLESTEROL LEVEL 187 MG/DL (<200); CHOLESTEROL RISK RATIO 3.33 (<5); CREATININE FOR GFR 3.24 MG/DL (0.55-1.30); GLOMERULAR FILTRATION RATE 15.3 (>45); GLUCOSE, FASTING 170 MG/DL (74-106); HDL CHOLESTEROL 56.1 MG/DL (>40); LDL CHOLESTEROL 98.3 MG/DL (<100); NON-HDL-C 130.9 MG/DL; POTASSIUM SERUM 4.2 MMOL/L (3.5-5.1); SODIUM LEVEL 138 MMOL/L (136-145); TOTAL PROTEIN 6.2 G/DL (5.7-8.2); TRIGLYCERIDES LEVEL 163 MG/DL (<150)
[2023-12-04 09:53] LABS: CARBAMAZEPINE (TEGRETOL) SO 3.8 mg/L (4.0-12.0)
[2023-12-04 14:13] LABS: VITAMIN D 1,25 DIHYDROXY 12.1 pg/mL (24.8-81.5)
== END ==
LOC: M PLALAB 12:15
PROVIDERS: ATTEND Nurse Practitioner Adult Health
DX: E11.22 Type 2 diabetes mellitus with diabetic chronic kidney disease (principal); E78.2 Mixed hyperlipidemia; E55.9 Vitamin D deficiency, unspecified; Z86.69 Personal history of other diseases of the nervous system and sense organs

== ENCOUNTER → 2024-01-17 | Outpatient (CLI) | payer MEDICARE, OTHER | LOC: M WHC 08:18 | PROVIDERS: ATTEND Nurse Practitioner Adult Health | DX: Z12.31 Encounter for screening mammogram for malignant neoplasm of breast (principal); M81.0 Age-related osteoporosis without current pathological fracture ==

== ENCOUNTER → 2024-04-03 | Outpatient (REF) ==
[2024-04-03 15:33] LABS: PHOSPHORUS LEVEL 5.5 MG/DL (2.4-5.1); POTASSIUM SERUM 6.5 MMOL/L (3.5-5.1)
== END ==
LOC: M LAB REF 12:32
PROVIDERS: ATTEND Internal Medicine Nephrology
DX: E87.5 Hyperkalemia (principal); E83.39 Other disorders of phosphorus metabolism

== ENCOUNTER → 2024-04-07 | Outpatient (REF) | LOC: M LAB REF 13:13 | PROVIDERS: ATTEND Internal Medicine Nephrology | DX: E87.5 Hyperkalemia (principal) ==

== ENCOUNTER 2024-07-05 07:49 | Day surgery (SDC) | payer MEDICARE ==
[~2024-07-05] VITALS: Ht 157.5 cm; Wt 101.6 kg
[~2024-07-05 07:49] MED LIST changes: +AMMO12CR4 EXT; -AMMO12CR7 EXT; +ATOR80TA59 PO; -EFFI10TA7 PO; -FLOM0.4C39 PO; +INSU100V19 SC; +MIDAZOLAM INJ 2MG/2ML VIAL As Ordered ONE; +PHENYLEPHRINE 10% OPHTH SOL 5ML OS PRN; +PRAS10TA12 PO; +TAMS-18 PO; +VITA100093 PO; +fentaNYL 100 MCG/2 ML INJECTION As Ordered ONE
[2024-07-05] MEDS: LIDOCAINE 3.5 % 1ML OPHTH TOPICAL GEL OU ONE (08:30)
[2024-07-05] MEDS: TROPICAMIDE 1% OPHTH SOLN 15ML OS SCH (09:24)
[2024-07-05] MEDS: PHENYLEPHRINE 2.5% OPHTH SOL 2ML OS SCH (09:24)
[2024-07-05] MEDS: CYCLOPENTOLATE 1% OPHTH SOLN 2ML BTL OS SCH (09:24)
[2024-07-05] MEDS: LIDOCAINE 1% SDV 5ML VIAL As Ordered ONE (09:44)
[2024-07-05] MEDS: CEFUROXIME 1MG/0.1ML INTRACAMERAL INJ As Ordered ONE (09:45)
[2024-07-05] MEDS: BSS IRRIG/VANCO(10MG)/TOBRA(5MG)/EPINEPH(1:1000-0.5CC)500ML BAG-ORONLY As Ordered ONE (09:45)
[2024-07-05 09:55] VITALS: BP 134/58; TEMP 97.7; O2SAT 98
== END 2024-07-05 10:20 | disposition home or self-care (01) ==
LOC: M SDC 07:49
PROVIDERS: ATTEND Ophthalmology
DX: H26.9 Unspecified cataract (principal); Z68.36 Body mass index [BMI] 36.0-36.9, adult; Z95.5 Presence of coronary angioplasty implant and graft; I25.10 Atherosclerotic heart disease of native coronary artery without angina pectoris; I10 Essential (primary) hypertension; E10.9 Type 1 diabetes mellitus without complications; G47.30 Sleep apnea, unspecified; Z86.73 Personal history of transient ischemic attack (TIA), and cerebral infarction without residual deficits; I25.2 Old myocardial infarction; Z88.0 Allergy status to penicillin; Z88.1 Allergy status to other antibiotic agents; Z91.041 Radiographic dye allergy status; Z88.3 Allergy status to other anti-infective agents; Z88.8 Allergy status to other drugs, medicaments and biological substances; Z91.030 Bee allergy status; Z91.013 Allergy to seafood; Z79.899 Other long term (current) drug therapy
CPT/HCPCS: 36415; 66984; 84132; J0697; J2250; J3010; V2632